=== PATIENT | male | born 1970 | race Caucasian/White ===

== ENCOUNTER → 2020-04-25 15:13 | Outpatient (BNVA) | payer BC, SELFPAY | PROVIDERS: PCP Internal Medicine; Visit Provider Hospitalist ==

== ENCOUNTER 2020-05-17 16:23 | Outpatient (REF) | payer BC, SELFPAY ==
--- NOTE | ~2020-05-17 | CT_ITS ---
EXAMINATION: CT CHEST WITHOUT CONTRAST CLINICAL INFORMATION: Solitary pulmonary nodule. COMPARISON: None. TECHNIQUE: Multidetector volumetric CT imaging of the chest was done. Axial MIP volume rendering provided. Sagittal and coronal reformatted images were obtained. This CT examination was performed using dose optimization techniques as appropriate, variously including the following: *Automated exposure control *Adjustment of mA and/or kV according to patient size (this includes techniques or standardized protocols for targeted exams where dose is matched to indication/reason for exam; i.e. extremities or head) *Use of iterative reconstruction technique DLP: 155 mGy-cm. FINDINGS: [employer] ATTENDANT: Hyperinflated lungs. LUNGS: There is diffuse centrilobular emphysema without acute pneumonic process. There is a 4 mm nodule left upper lobe on axial image 129/9, a 2 mm nodule right lower lobe laterally on axial image 154/9, a 5 mm nodule superior segment right lower lobe on axial image 233/9, a 5 mm nodule subpleural based right upper lobe on image 202/9. No additional nodules visualized. MEDIASTINUM: The thyroid lobes are symmetrical and normal. The central trachea and the bronchi are widely patent. Heart size and the great vessels are normal caliber. No abnormal-sized mediastinal or hilar lymph nodes seen. There is no pericardial effusion. PLEURA: There is no pleural effusion. No pleural mass or thickening. AXILLA: There are small shotty lymph nodes in the axilla. The largest gil-shaped lymph node left axilla measures 1 cm in right axilla measures 1.1 cm. UPPER ABDOMEN: Visualized liver, spleen, pancreas and bilateral adrenal glands are unremarkable. OSSEOUS STRUCTURES: No lytic or sclerotic process seen. CT/CT chest wo con IMPRESSION: Diffuse centrilobular emphysema with no acute pneumonic process seen. There are scattered pulmonary nodules as described above with the largest nodule measuring 5 mm in the superior segment right lower lobe. Based on risk factors, a followup can be performed as per Fleischner guidelines in one year.
== END 2020-05-17 16:24 | disposition home or self-care (01) ==
LOC: HO.CT 16:23
PROVIDERS: PCP Internal Medicine; Visit Provider Hospitalist
DX: R91.1 Solitary pulmonary nodule (principal)
CPT/HCPCS: 71250

== ENCOUNTER 2020-05-19 13:56 | Outpatient (REF) | payer BC, SELFPAY ==
--- NOTE | 2020-05-19 16:34 | PFT_ITS ---
Forced vital capacity is normal. FEV1, IMP69-94, and MVV are all markedly decreased. Post bronchodilator therapy, there is a slight improvement in FEV1 and [id number]. Total lung capacity is moderately increased and residual volume is markedly increased. Diffusion capacity is markedly decreased. CONCLUSION: Severe obstructive airway disorder. Minimal improvement after bronchodilator therapy is noted. There is evidence of hyperinflation and air trapping. MD JANETTE Craig/MODL / [id number]
== END 2020-05-19 13:57 | disposition home or self-care (01) ==
LOC: HO.RESP 13:56
PROVIDERS: Visit Provider Hospitalist
DX: J41.1 Mucopurulent chronic bronchitis (principal)
CPT/HCPCS: 94060; 94727; 94729

== ENCOUNTER → 2020-06-13 14:31 | Outpatient (BNVA) | payer BC, SELFPAY | PROVIDERS: PCP Internal Medicine; Visit Provider Hospitalist ==

== ENCOUNTER → 2020-12-29 14:58 | Outpatient (BNVA) | payer BC, SELFPAY | PROVIDERS: PCP Internal Medicine; Visit Provider Hospitalist | DX: Z23 Encounter for immunization (principal); J44.1 Chronic obstructive pulmonary disease with (acute) exacerbation; R91.1 Solitary pulmonary nodule; F17.200 Nicotine dependence, unspecified, uncomplicated | CPT/HCPCS: 90686 ==

== ENCOUNTER 2021-06-28 06:32 | Inpatient (IN) | payer BC, SELFPAY ==
[2021-06-28] VITALS (12 sets, daily range): BP systolic 95–184; BP diastolic 65–101; PULSE 98–120; RESP 16–27; TEMP 36.7–37.2; O2SAT 80–99; BMI 25.7
--- NOTE | ~2021-06-28 | XR_ITS ---
EXAMINATION: XR CHEST CLINICAL INFORMATION: Shortness of breath COMPARISON: CT chest from 05/17/2020 TECHNIQUE: Frontal view of the chest was obtained. FINDINGS: Hyperinflation the bilateral lung pittman with flattening of the diaphragms corresponding to emphysematous changes. Streaky and patchy opacities involving the bilateral mid to lower lung pittman suggesting an infectious/inflammatory etiology. Correlation with symptomatology. No pneumothorax. Trachea is midline. Cardiomediastinal silhouette is not enlarged. No large pleural effusion. Osseous structures are intact. Soft tissues are unremarkable. XR/XR chest 1V IMPRESSION: 1. Hyperinflation the bilateral lung pittman with flattening of the diaphragms corresponding to emphysematous changes. 2. Streaky and patchy opacities involving the bilateral mid to lower lung pittman suggesting an infectious/inflammatory etiology. Correlation with symptomatology.
--- NOTE | ~2021-06-28 | CT_ITS ---
EXAMINATION: CT HEAD WITHOUT CONTRAST CLINICAL INFORMATION: Headache. Pounding. Hypertension. COMPARISON: None TECHNIQUE: Contiguous axial imaging was performed from the skull base to vertex without intravenous administration of contrast. This CT examination was performed using dose optimization techniques as appropriate, variously including the following: *Automated exposure control *Adjustment of mA and/or kV according to patient size (this includes techniques or standardized protocols for targeted exams where dose is matched to indication/reason for exam; i.e. extremities or head) *Use of iterative reconstruction technique DLP: 697 mGy-cm FINDINGS: The ventricles and sulci are normal in size and configuration. No intrarenal hemorrhage, tumors or acute infarcts are noted. No focal parenchymal lesions of the brain are identified. The orbits and globes are normal in appearance. Moderate opacification of scattered ethmoid air cells is noted. Moderate lobulated mucosal thickening of the maxillary sinuses is noted. Partial visualization is made of a 2.5 cm diameter rounded focus within the right maxillary sinus which may represent a mucosal retention cyst. No mastoid air cell or middle ear cavity fluid collections noted. Mild mucosal thickening is present in the frontal sinuses. The sphenoid sinus demonstrates minimal mucosal thickening. CT/CT head/brain wo con IMPRESSION: *No acute intracranial abnormalities. *Findings suspicious for mild-moderate chronic pansinusitis.
--- NOTE | 2021-06-28 06:36 | ECG_ITS ---
Test Reason : SOB Blood Pressure : / mmHG Vent. Rate : 114 BPM Atrial Rate : 114 BPM P-R Int : 132 ms QRS Dur : 084 ms QT Int : 310 ms P-R-T Axes : 078 089 081 degrees QTc Int : 427 ms Sinus tachycardia cannot exclude old Septal infarct , age undetermined ; could be related to body habitus/lead placement Abnormal ECG No previous ECGs available Referred By: Generic ED Physician Electronically Signed By:JENNIFER FORTE
--- NOTE | 2021-06-28 06:49 | ED_ITS ---
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) Timing: progressively worsening Severity: severe Exacerbating factors: exertion and coughing Relieving factors: oxygen and rest Known history of: COPD Associated symptoms: cough, wheezing and sputum production Treatment prior to arrival: oxygen Related Data Home Medications Medication Instructions Recorded Confirmed albuterol sulfate 90 mcg/actuation 1 - 2 puff INHALATION Q4-6H 04/25/20 04/25/20 aerosol inhaler cholecalciferol (vitamin D3) 25 25 mcg PO DAILY 04/25/20 04/25/20 mcg (1,000 unit) capsule multivitamin 1 tab PO DAILY 04/25/20 04/25/20 ramipril 10 mg capsule 10 mg PO DAILY 04/25/20 04/25/20 Previous Rx's Medication Instructions Recorded azithromycin 250 mg tablet 250 mg PO 3XW 28 Days #12 tab 11/10/20 nicotine 10 mg/mL nasal spray 1 spray INTRANASAL Q15M PRN 30 12/29/20 (Nicotrol NS) Days #40 ml prednisone 20 mg tablet See Rx Instructions PO DAILY 10 12/29/20 Days #15 tab Breztri Aerosphere 160 2 inh PO BID #10.7 g NS 05/14/21 mcg-9mcg-4.8mcg/actuation HFA aerosol inhaler (bwxsmrtwnn-xvnkbarp-tdlunwkvrz) bupropion HCl 75 mg tablet 150 mg PO BID #120 tab 05/14/21 Allergies Allergy/AdvReac Type Severity Reaction Status Date / Time varenicline [From Chantix] AdvReac Mild Nightmare Verified 12/29/20 15:00 Review of Systems Review of Systems: Constitutional : No Fever, No Chills ENT/Mouth : No sore throat, No Rhinorrhea, No Swallowing Difficulty Eyes: No Eye Pain, No Swelling, No Redness Cardiovascular : No Chest Pain, positive SOB, No Orthopnea, no Edema Respiratory : pos Cough, pos Sputum, pos Wheezing, positive dyspnea Gastrointestinal : No Nausea, No Vomiting, No Diarrhea, No abdominal Pain, No Hematochezia, No Melena Genitourinary : No Dysuria, No Urinary Frequency, No Hematuria Musculoskeletal : No joint pain, No Myalgias Skin : No Skin Lesions, No rash Neuro : No Weakness, No Numbness, No Dizziness, No Headache Psych : No Anxiety/Panic, No Depression Heme/Lymph: No Bruising, No Lymphadenopathy Endocrine : No Polyuria, No Polydipsia All other systems reviewed and are negative [facility] Past Medical History Attestation statement: The following information was validated with the patient. Medical History COPD (chronic obstructive pulmonary disease) Pulmonary nodule Tobacco dependence Social History Social History Alcohol intake: current Alcohol intake frequency: 0-2 drinks per day Alcohol type: beer Patient Tobacco Use Status: Current everyday Tobacco user Cigarette Packs Per Day: 1 Cigarettes Per Day: 5 Years Smoked: 30 years Use of substances other than those prescribed or required for medical reasons: Yes Substance Use Type: Marijuana Substance Use Frequency: Weekly Advance Directives: No Advance Directives Information Provided: Yes Physical Exam Vital Signs: Vital Signs: Last Vital Signs Temp 98.1 F 06/28/21 06:46 Pulse 112 H 06/28/21 08:08 Resp 20 06/28/21 08:08 BP 95/65 06/28/21 08:08 Pulse Ox 95 06/28/21 08:08 BMI result Body Mass Index 25.7 Appearance: Alert. Oriented X3. Mild acute distress. RA sat 80% Eyes: Pupils equal, round and reactive to light. ENT: Pharynx normal. Neck: Normal inspection. Neck supple. CVS: tachycardic heart rate and rhythm. Pulses normal. Respiratory: Mild respiratory distress - tachypnea and retractions. Breath sounds diffuse end exp wheezes - very tight Abdomen: Soft and non-tender. Skin: Skin warm and dry. Normal skin color. Normal skin turgor. Extremities: No lower extremity edema. No calf ttp Neuro: Oriented X 3. No motor deficit. No sensory deficit. Course Course Course Narrative: still wheezing - on 3L NC 96%, repeat neb ordered, planned admit MDM - SOB/Dyspnea MDM Narrative Medical decision making narrative: 50 yo male with hx of COPD, HTN here with c/o being exposed working with dust - he is here hypoxic with wheezing and tight lungs. 80% on arrival does not use O2 at home. Will need basic labs, CXR, IV steroids, IV magnesium, 10mg albuterol neb - CXR and COVID swab. Anticipate admission given presentation and hypoxia. Lab Data Result diagrams: 06/28/21 06:52 06/28/21 06:52 Labs: Lab Results 06/28/21 06/28/21 06/28/21 Range/Units 06:52 06:52 06:52 WBC 8.0 (4.8-10.8) X10*3/uL RBC 5.35 (4.60-5.80) X10*6/uL Hgb 17.1 (14.0-18.0) g/dl Hct 51.4 (42.0-52.0) % MCV 96.1 (80.0-98.0) fL MCH 32.0 (27.0-33.0) pg MCHC 33.3 (31.0-36.0) g/dl RDW 12.3 (11.0-16.0) % Plt Count 194 (160-400) X10*3/uL MPV 10.0 (9.4-12.4) fL Immature Gran % (Auto) 0.4 (0.0-0.4) % Neut % (Auto) 65.6 (45-73) % Lymph % (Auto) 13.6 L (20-40) % Hernando % (Auto) 18.0 H (2-11) % Eos % (Auto) 1.6 (0-4) % Baso % (Auto) 0.8 (0-2) % Lymph # (Auto) 1.1 L (1.2-4.9) X10*3/uL Hernando # (Auto) 1.4 H (0.1-1.2) X10*3/uL Eos # (Auto) 0.1 (0.0-0.4) X10*3/uL Baso # (Auto) 0.1 (0.0-0.2) X10*3/uL Abs Immat Gran (auto) 0.03 (0.00-0.03) X10*3/uL Absolute Neuts (auto) 5.2 (2.0-8.3) x10*3/uL Absolute Nucleated RBC 0.000 (0.0-0.012) X10*3/uL Nucleated RBC % (auto) 0.0 (0.0-0.2) /100WBC Sodium 135 (135-145) mmol/L Potassium 4.5 (3.3-5.1) mmol/L Chloride 96 (96-108) mmol/L Carbon Dioxide 31 H (22-29) mmol/L Anion Gap 13 (12-20) BUN 12 (9-16) mg/dL Creatinine 0.85 (0.5-1.4) mg/dL Estim Creat Clear Calc 109.5 Estimated GFR > 60 Random Glucose 145 H (60-115) mg/dL Lactic Acid 1.1 (0.5-2.0) mmol/L Calcium 9.6 (8.4-10.2) mg/dL Total Bilirubin 0.5 (0.0-1.0) mg/dL Direct Bilirubin 0.2 (0.0-0.5) mg/dL AST 24 (5-37) U/L ALT 20 (0-40) U/L Alkaline Phosphatase 75 (39-117) U/L Troponin I High Sens (<3.5-35.0) ng/L Total Protein 7.3 (6.5-8.0) g/dL Albumin 4.2 (3.5-5.0) g/dL COVID-19 (LOUIE) (Negative) COVID-19 Clin Com 06/28/21 06/28/21 Range/Units 06:54 07:22 WBC (4.8-10.8) X10*3/uL RBC (4.60-5.80) X10*6/uL Hgb (14.0-18.0) g/dl Hct (42.0-52.0) % MCV (80.0-98.0) fL MCH (27.0-33.0) pg MCHC (31.0-36.0) g/dl RDW (11.0-16.0) % Plt Count (160-400) X10*3/uL MPV (9.4-12.4) fL Immature Gran % (Auto) (0.0-0.4) % Neut % (Auto) (45-73) % Lymph % (Auto) (20-40) % Hernando % (Auto) (2-11) % Eos % (Auto) (0-4) % Baso % (Auto) (0-2) % Lymph # (Auto) (1.2-4.9) X10*3/uL Hernando # (Auto) (0.1-1.2) X10*3/uL Eos # (Auto) (0.0-0.4) X10*3/uL Baso # (Auto) (0.0-0.2) X10*3/uL Abs Immat Gran (auto) (0.00-0.03) X10*3/uL Absolute Neuts (auto) (2.0-8.3) x10*3/uL Absolute Nucleated RBC (0.0-0.012) X10*3/uL Nucleated RBC % (auto) (0.0-0.2) /100WBC Sodium (135-145) mmol/L Potassium (3.3-5.1) mmol/L Chloride (96-108) mmol/L Carbon Dioxide (22-29) mmol/L Anion Gap (12-20) BUN (9-16) mg/dL Creatinine (0.5-1.4) mg/dL Estim Creat Clear Calc Estimated GFR Random Glucose (60-115) mg/dL Lactic Acid (0.5-2.0) mmol/L Calcium (8.4-10.2) mg/dL Total Bilirubin (0.0-1.0) mg/dL Direct Bilirubin (0.0-0.5) mg/dL AST (5-37) U/L ALT (0-40) U/L Alkaline Phosphatase (39-117) U/L Troponin I High Sens 7.5 (<3.5-35.0) ng/L Total Protein (6.5-8.0) g/dL Albumin (3.5-5.0) g/dL COVID-19 (LOUIE) Negative (Negative) COVID-19 Clin Com See Note ECG Data Attestation: I personally reviewed and interpreted this ECG as follows: ECG interpretation date: 06/28/21 ECG interpretation time: 07:02 Interpretation: Rate: 114 Rhythm: sinus tachycardia Canon: normal Normal P waves. Normal JOSH. Normal QRS complex. Poor R wave progression ST T wave : normal no SAMARA qTC: normal prior studies: no acute ischemia The study has been interpreted contemporaneously by me. Critical Care Time Critical Care Time Critical Care Time: Yes Total Critical Care Time: 60 Attestation: repeat assessments, repeat hour long nebs, review of records, admssion I attest to this time spent taking care of the patient Discharge Plan Discharge Clinical Impression: COPD (chronic obstructive pulmonary disease) Qualifiers: COPD type: COPD with acute exacerbation Qualified Code(s): J44.1 - Chronic obstructive pulmonary disease with (acute) exacerbation Patient Disposition: Admitted As Inpatient
[2021-06-28] MEDS: Albuterol Sulfate (0.083%) 2.5 MG/3 ML VIAL.NEB 10 MG INHALE (06:57)
--- NOTE | 2021-06-28 06:57 | PC.NURSE ---
Addendum entered by Kacy Guerra 06/28/21 07:16: Report given to MONTY Tse Original Note: pt arrived alert and oriented from home, with sob, audible wheezes. pt notice to be 80's RA. started on NC 6L increase to 96. pt started on continuos cardiac monitoring. ekg completed. IV inserted. respiratory arrived to bedside, pt tolerating treatment
[2021-06-28 07:02] LABS: MANUAL DIFF FLAG NO
[2021-06-28] MEDS: Magnesium Sulfate/H2O 2 GM/50 ML PIGGYBACK IV (07:05)
[2021-06-28] MEDS: methylPREDNISolone Sod Succ 125 MG/2 ML VIAL IVPUSH (07:05)
[2021-06-28 07:13] LABS: Lactic Acid 1.1 mmol/L (0.5-2.0)
[2021-06-28 07:18] LABS: Alanine Aminotransferase 20 U/L (0-40); Albumin Level 4.2 g/dL (3.5-5.0); Alkaline Phosphatase 75 U/L (39-117); Anion Gap 13 (12-20); Aspartate Amino Transferase 24 U/L (5-37); Bilirubin Direct 0.2 mg/dL (0.0-0.5); Bilirubin Total 0.5 mg/dL (0.0-1.0); Blood Urea Nitrogen 12 mg/dL (9-16); Calcium 9.6 mg/dL (8.4-10.2); Carbon Dioxide 31 mmol/L (22-29); Chloride 96 mmol/L (96-108); Creatinine Clr Calc Pharmacy 109.5; Estimated Glomerular Filt Rate > 60; Glucose Random 145 mg/dL (60-115); Potassium 4.5 mmol/L (3.3-5.1); Sodium 135 mmol/L (135-145); Total Protein 7.3 g/dL (6.5-8.0)
[2021-06-28 07:21] LABS: Basophils Absolute Auto 0.1 X10*3/uL (0.0-0.2); Basophils Percent Auto 0.8 % (0-2); Eosinophils Absolute Auto 0.1 X10*3/uL (0.0-0.4); Eosinophils Percent Auto 1.6 % (0-4); Hematocrit 51.4 % (42.0-52.0); Hemoglobin 17.1 g/dl (14.0-18.0); Imm Gran Abs Auto 0.03 X10*3/uL (0.00-0.03); Imm Gran Pct Auto 0.4 % (0.0-0.4); Lymphocytes Absolute Auto 1.1 X10*3/uL (1.2-4.9); Lymphocytes Percent Auto 13.6 % (20-40); Mean Corpuscular HGB Conc 33.3 g/dl (31.0-36.0); Mean Corpuscular Volume 96.1 fL (80.0-98.0); Monocytes Absolute Auto 1.4 X10*3/uL (0.1-1.2); Neutrophils Absolute Auto 5.2 x10*3/uL (2.0-8.3); Neutrophils Percent Auto 65.6 % (45-73); Platelet Count 194 X10*3/uL (160-400); Red Blood Count 5.35 X10*6/uL (4.60-5.80); Red Cell Distribution Width 12.3 % (11.0-16.0)
[2021-06-28 07:24] LABS: Troponin-I High Sensitivity 7.5 ng/L (<3.5-35.0)
[2021-06-28 07:50] LABS: COVID-19 Test Negative (Negative); IDNOW Serial# 16C4AD1C
[2021-06-28] MEDS: Albuterol/Iprat 2.5/0.5MG 3 ML AMPUL.NEB INHALE ×3 (08:01→19:57)
[2021-06-28] MEDS: Albuterol Sulfate (0.083%) 2.5 MG/3 ML VIAL.NEB 5 MG INHALE (08:01)
--- NOTE | 2021-06-28 08:15 | PC.NURSE ---
pt alert and oriented, skin slightly red in the face, respirations even and unlabored, ls still very tight and wheezing through out, pt denies pain, sinus tach on the monitor, bp slightly low 95/65
[2021-06-28] MEDS: cefTRIAXone sodium 1 GM in 0.9 % Sodium Chloride 50 ML IV (08:23)
[2021-06-28] MEDS: 0.9 % Sodium Chloride 1,000 ML 999 ML IV (08:23)
[2021-06-28] MEDS: Doxycycline Hyclate 100 MG in 0.9 % Sodium Chloride 250 ML 166.67 MG IV (09:27)
--- NOTE | 2021-06-28 09:31 | PC.NURSE ---
Sats low 90s on 3.5 liters with good pt effort wiht coughing. Pt appears comfortable in NAD at this time.
--- NOTE | 2021-06-28 10:24 | P.HPHOSP_ITS ---
History of Present Illness Date of Service: 06/28/21 Chief Complaint: dyspnea, cough 50yo M with COPD + HTN presenting with 1 week of worsening dyspnea, wheezing, and cough productive of yellow sputum. 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 Endorses nasal congestion. No fever or sore throat. No sick contacts. Last course of prednisone 6 yr ago. He sees Dr Pablo at [facility] and is on triple controller inhaler therapy. In the ED, he presented with hypoxia, with SaO2 80% on room air at arrival. Not on home oxygen. Given IV glucocorticoid, IV magnesium, ceftriaxone, doxycycline, and 10 mg of nebulized albuterol. Covid-19 LOUIE negative. CXR showed hyperinflated luntgs with bilateral streaky mid and lower lung opacities. Review of Systems Review of Systems: Yes all other systems are reviewed and are negative [facility] Medical History COPD (chronic obstructive pulmonary disease) History of diverticulitis Hypertension Pulmonary nodule Tobacco abuse Tobacco dependence Surgical History History of hernia repair History of partial colectomy Social History Alcohol intake: current Alcohol intake frequency: 0-2 drinks per day Alcohol type: beer Patient Tobacco Use Status: Current everyday Tobacco user Cigarette Packs Per Day: 1 Cigarettes Per Day: 5 Years Smoked: 30 years Use of substances other than those prescribed or required for medical reasons: Yes Substance Use Type: Marijuana Substance Use Frequency: Weekly Advance Directives: No Advance Directives Information Provided: Yes Meds Allergies Allergy/AdvReac Type Severity Reaction Status Date / Time varenicline [From Chantix] AdvReac Mild Nightmare Verified 12/29/20 15:00 Active Medications: Current Medications Acetaminophen (Acetaminophen 325 Mg Tablet) 650 mg PO Q6H PRN PRN Reason: Pain, Mild (Pain Scale 1-3) Albuterol Sulfate (Albuterol Sulfate (0.083%) 2.5 Mg/3 Ml Vial.Neb) 2.5 mg INHALE Q2H PRN PRN Reason: Shortness of Breath/Wheezing Albuterol/Ipratropium (Albuterol/Iprat 2.5/0.5mg 3 Ml Ampul.Neb) 3 ml INHALE RQ4H WHILE AWAKE [facility] Doxycycline Hyclate (Doxycycline Hyclate 100 Mg Tablet) 100 mg PO Q12H [facility] Enoxaparin Sodium (Enoxaparin Sodium 40 Mg/0.4 Ml Syringe) 40 mg SUBCUT Q24H [facility] Ceftriaxone Sodium 1 gm/ (Sodium Chloride) 50 mls @ 100 mls/hr IV Q24H [facility] Methylprednisolone Sodium Succinate (Methylprednisolone Sod Succ 40 Mg/Ml Vial) 40 mg IVPUSH Q12H [facility] Nicotine (Nicotine 21 Mg Patch.Td24) 21 mg TRANSDERMA DAILY [facility] Ondansetron HCl (Ondansetron Hcl 4 Mg/2 Ml Vial) 4 mg IVPUSH Q8H PRN PRN Reason: Nausea and Vomiting Pharmacy Consult (Consult Rx Perform Med Rec) 1 each MISCELLANE STAT STA Stop: 06/28/21 09:34 Sodium Chloride (0.9 % Sodium Chloride Flush 3 Ml Syringe) 3 ml IVFLUSH QSHIFT [facility] Home Medications Medication Instructions Recorded Confirmed Last Taken Type albuterol sulfate 90 mcg/actuation 1 - 2 puff INHALATION Q4-6H 04/25/20 04/25/20 Unknown History aerosol inhaler cholecalciferol (vitamin D3) 25 25 mcg PO DAILY 04/25/20 04/25/20 Unknown History mcg (1,000 unit) capsule multivitamin 1 tab PO DAILY 04/25/20 04/25/20 Unknown History ramipril 10 mg capsule 10 mg PO DAILY 04/25/20 04/25/20 Unknown History Physical Exam Vital Signs and Narrative: Vital Signs: Last Vital Signs Temp 98.0 F 06/28/21 09:29 Pulse 109 H 06/28/21 09:29 Resp 17 06/28/21 09:29 BP 111/72 06/28/21 09:29 Pulse Ox 90 L 06/28/21 09:29 BMI result Body Mass Index 25.7 Gen: moderate respiratory distress, breathing 28/min HEENT: sclera anicteric, moist mucus membranes Neck: supple Lungs: poor air entry, faint expiratory wheezing, prolonged expiratory phase Heart: tachycardic, no murmurs Abd: soft, non-tender, non-distended Ext: no edema Skin: warm/well-perfused Neuro: alert and oriented x3, no focal findings Psych: appropriate affect Results Labs CBC and Chem 7: 06/28/21 06:52 06/28/21 06:52 Labs: Laboratory Results - last 24 hr 06/28/21 06/28/21 06/28/21 06:52 06:52 06:52 MCV 96.1 MCH 32.0 MCHC 33.3 RDW 12.3 Plt Count 194 MPV 10.0 Immature Gran % (Auto) 0.4 Neut % (Auto) 65.6 Lymph % (Auto) 13.6 L Morton % (Auto) 18.0 H Eos % (Auto) 1.6 Baso % (Auto) 0.8 Lymph # (Auto) 1.1 L Morton # (Auto) 1.4 H Eos # (Auto) 0.1 Baso # (Auto) 0.1 Abs Immat Gran (auto) 0.03 Absolute Neuts (auto) 5.2 Absolute Nucleated RBC 0.000 Nucleated RBC % (auto) 0.0 Anion Gap 13 Estim Creat Clear Calc 109.5 Estimated GFR > 60 Random Glucose 145 H Lactic Acid 1.1 Calcium 9.6 Total Bilirubin 0.5 Direct Bilirubin 0.2 AST 24 ALT 20 Alkaline Phosphatase 75 Troponin I High Sens Total Protein 7.3 Albumin 4.2 COVID-19 (LOUIE) COVID-19 Clin Com 06/28/21 06/28/21 06:54 07:22 MCV MCH MCHC RDW Plt Count MPV Immature Gran % (Auto) Neut % (Auto) Lymph % (Auto) Morton % (Auto) Eos % (Auto) Baso % (Auto) Lymph # (Auto) Morton # (Auto) Eos # (Auto) Baso # (Auto) Abs Immat Gran (auto) Absolute Neuts (auto) Absolute Nucleated RBC Nucleated RBC % (auto) Anion Gap Estim Creat Clear Calc Estimated GFR Random Glucose Lactic Acid Calcium Total Bilirubin Direct Bilirubin AST ALT Alkaline Phosphatase Troponin I High Sens 7.5 Total Protein Albumin COVID-19 (LOUIE) Negative COVID-19 Clin Com See Note Impressions Chest X-Ray 06/28/21 08:51 IMPRESSION: 1. Hyperinflation the bilateral lung pittman with flattening of the diaphragms corresponding to emphysematous changes. 2. Streaky and patchy opacities involving the bilateral mid to lower lung pittman suggesting an infectious/inflammatory etiology. Correlation with symptomatology. Imaging Radiologist's Impressions: Impressions Chest X-Ray 06/28/21 08:51 IMPRESSION: 1. Hyperinflation the bilateral lung pittman with flattening of the diaphragms corresponding to emphysematous changes. 2. Streaky and patchy opacities involving the bilateral mid to lower lung pittman suggesting an infectious/inflammatory etiology. Correlation with symptomatology. Assessment and Plan (1) COPD exacerbation: Status: Acute (2) Acute respiratory failure with hypoxia: Status: Acute Plan 50yo M with COPD + HTN presenting with 1 week of worsening dyspnea, wheezing, and cough productive of yellow sputum. He is found to be hypoxic with bilateral streaky opacities concerning for pneumonia. # COPD exacerbation - admit to M/S, give IV methylprednisolone, standing/prn bronchodilators, Pulm consult # acute hypoxic respiratory failure - supplemental O2 via NC, wean as tolerated # CAP - ceftriaxone + doxycycline, follow BCx, trend PCT, check respiratory virus panel # HTN - continue CIRILO-I # tobacco abuse - NRT # VTE ppx - LMWH # code - full Quality Stroke Does the patient have a stroke diagnosis?: No VTE Prior VTE?: No VTE Risk Level:: Medical - moderate - high VTE Device Contraindication: N/A - Device Ordered VTE Drug Contraindication: N/A - Med Ordered
[2021-06-28 10:25] LABS: Procalcitonin 0.04 ng/mL
[2021-06-28 11:10] LABS: Troponin-I High Sensitivity 5.8 ng/L (<3.5-35.0)
--- NOTE | 2021-06-28 11:51 | PHA.MEDREC ---
Pharmacy Consult ? Medication Reconciliation Pharmacy has completed the medication reconciliation. No remarkable issues. Jimena Saunders, SonamD
[2021-06-28] MEDS: Enoxaparin Sodium 40 MG/0.4 ML SYRINGE SUBCUT (11:54)
--- NOTE | 2021-06-28 14:17 | MHC.CM.PN ---
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
--- NOTE | 2021-06-28 14:18 | PC.NURSE ---
Report called to justice in overflow unit. Pt reports being comfortable at this time. Awaiting transport to unit.
[2021-06-28] MEDS: 0.9 % Sodium Chloride Flush 3 ML SYRINGE IVFLUSH (15:49)
[2021-06-29] VITALS (8 sets, daily range): BP systolic 126–146; BP diastolic 79–92; PULSE 100–121; RESP 16–28; TEMP 36.9–37.3; O2SAT 90–96
--- NOTE | 2021-06-29 | ECG_ITS ---
Test Reason : HYPERK Blood Pressure : / mmHG Vent. Rate : 106 BPM Atrial Rate : 106 BPM P-R Int : 128 ms QRS Dur : 084 ms QT Int : 310 ms P-R-T Axes : 074 087 073 degrees QTc Int : 411 ms Sinus tachycardia cannot exclude old Septal infarct (cited on or before 28-JUN-2021) ; could be related to body habitus/lead placement Borderline ECG When compared with ECG of 28-JUN-2021 06:37, No significant change was found Referred By: Raul Mora Electronically Signed By:JENNIFER FORTE
[2021-06-29] MEDS: 0.9 % Sodium Chloride Flush 3 ML SYRINGE IVFLUSH ×4 (01:02→20:53)
[2021-06-29] MEDS: Acetaminophen 325 MG TABLET 650 MG PO ×2 (01:06→07:56)
[2021-06-29 06:11] LABS: VBG Base Excess 11.3 mmol/L; VBG HCO3 43 mmol/L (22-26); VBG pCO2 87 mmHg; VBG pH 7.29 (7.32-7.43); VBG pO2 29 mmHg
[2021-06-29 06:11] LABS: Hematocrit 51.8 % (42.0-52.0); Hemoglobin 16.6 g/dl (14.0-18.0); Mean Corpuscular Hemoglobin 31.7 pg (27.0-33.0); Mean Platelet Volume 9.6 fL (9.4-12.4); Platelet Count 179 X10*3/uL (160-400); Red Blood Count 5.23 X10*6/uL (4.60-5.80); Red Cell Distribution Width 12.3 % (11.0-16.0); Venous Blood Gas Refer to POC result; White Blood Count 10.4 X10*3/uL (4.8-10.8)
[2021-06-29 07:10] LABS: Anion Gap 8 (12-20); Blood Urea Nitrogen 14 mg/dL (9-16); Calcium 9.6 mg/dL (8.4-10.2); Carbon Dioxide 37 mmol/L (22-29); Chloride 99 mmol/L (96-108); Creatinine Clr Calc Pharmacy 116.3; Estimated Glomerular Filt Rate > 60; Glucose Random 128 mg/dL (60-115); Potassium 6.2 mmol/L (3.3-5.1); Sodium 138 mmol/L (135-145)
[2021-06-29] MEDS: cefTRIAXone sodium 1 GM in 0.9 % Sodium Chloride 50 ML IV (07:50)
[2021-06-29] MEDS: methylPREDNISolone Sod Succ 40 MG/ML VIAL IVPUSH (07:55)
[2021-06-29] MEDS: buPROPion HCL 75 MG TABLET 150 MG PO (07:55)
[2021-06-29] MEDS: Cholecalciferol (Vitamin D3) 25 MCG TABLET PO (07:55)
[2021-06-29] MEDS: Multivitamin TABLET 1 TAB PO (07:56)
[2021-06-29] MEDS: Nicotine 21 MG PATCH.TD24 TRANSDERMA (07:57)
[2021-06-29] MEDS: Sodium Zirconium Cyclosilicate 10 GM POWD.PACK PO (07:58)
[2021-06-29 07:59] LABS: Glucose, Whole Blood 131 mg/dL (60-115)
[2021-06-29 08:12] LABS: Anion Gap 9 (12-20); Blood Urea Nitrogen 13 mg/dL (9-16); Calcium 9.5 mg/dL (8.4-10.2); Carbon Dioxide 36 mmol/L (22-29); Chloride 98 mmol/L (96-108); Creatinine Clr Calc Pharmacy 108.2; Estimated Glomerular Filt Rate > 60; Glucose Random 126 mg/dL (60-115); Potassium 5.2 mmol/L (3.3-5.1); Sodium 138 mmol/L (135-145)
[2021-06-29] MEDS: Calcium Gluconate/NaCl,Iso-Osm 1 GM/50 ML PLAST..BAG IV (08:16)
[2021-06-29] MEDS: Albuterol/Iprat 2.5/0.5MG 3 ML AMPUL.NEB INHALE ×3 (08:19→20:09)
--- NOTE | 2021-06-29 09:29 | PM.CNPUL ---
History of Present Illness History of Present Illness Consult date: 06/29/21 Chief complaint: COPD, PNA,hypoxia Narrative: The patient is here for an inpatient pulmonary consultation. The patient is a 50yo M with COPD + HTN presenting with 1 week of worsening dyspnea, wheezing, and cough productive of yellow sputum.? 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 Endorses nasal congestion.? No fever or sore throat.? No sick contacts.? Last course of prednisone 6 yr ago.?In the ED, he presented with hypoxia, with SaO2 80% on room air at arrival.? Not on home oxygen.? Given IV glucocorticoid, IV magnesium, ceftriaxone, doxycycline, and 10 mg of nebulized albuterol.? Covid-19 LOUIE negative.? CXR showed hyperinflated luntgs with bilateral streaky mid and lower lung opacities. The patient is still having hard time. I did review his chest x-ray demonstrating hyperinflation. He is having hard time coughing. He had been exposed to significant in organic dust at work. I am concerned that he has reactive airway dysfunction syndrome. He does have increased work of breathing. I will request an ABG to make sure he is adequately compensating. In meantime also will provide him with additional steroids and nebulized therapy. Review of Systems Review of Systems: Constitutional : No Fever, No Chills ENT/Mouth : No sore throat, No Rhinorrhea, No Swallowing Difficulty Eyes: No Eye Pain, No Swelling, No Redness Cardiovascular : No Chest Pain, positive SOB, No Orthopnea, no Edema Respiratory : pos Cough, pos Sputum, pos Wheezing, positive dyspnea Gastrointestinal : No Nausea, No Vomiting, No Diarrhea, No abdominal Pain, No Hematochezia, No Melena Genitourinary : No Dysuria, No Urinary Frequency, No Hematuria Musculoskeletal : No joint pain, No Myalgias Skin : No Skin Lesions, No rash Neuro : No Weakness, No Numbness, No Dizziness, No Headache Psych : No Anxiety/Panic, No Depression Heme/Lymph: No Bruising, No Lymphadenopathy Endocrine : No Polyuria, No Polydipsia All other systems reviewed and are negative PMFSH Past Medical History Medical History COPD (chronic obstructive pulmonary disease) History of diverticulitis Hypertension Pulmonary nodule Tobacco abuse Tobacco dependence Surgical History Surgical History History of hernia repair History of partial colectomy Social History Social History Household Members: Spouse Housing: House Alcohol intake: current Alcohol intake frequency: 0-2 drinks per day Alcohol type: beer Patient Tobacco Use Status: Current everyday Tobacco user Tobacco use type: Cigarette Cigarette Packs Per Day: 1 Cigarettes Per Day: 5 Years Smoked: 30 years Second Hand Smoke Exposure: No Substance Use Type: Marijuana service: No Current occupational status: employed Meds Allergies Allergy/AdvReac Type Severity Reaction Status Date / Time varenicline [From Chantix] AdvReac Mild Nightmare Verified 12/29/20 15:00 Active Medications: Current Medications Acetaminophen (Acetaminophen 325 Mg Tablet) 650 mg PO Q6H PRN PRN Reason: Pain, Mild (Pain Scale 1-3) Last Admin: 06/29/21 07:56 Dose: 650 mg Documented by: Albuterol Sulfate (Albuterol Sulfate (0.083%) 2.5 Mg/3 Ml Vial.Neb) 2.5 mg INHALE Q2H PRN PRN Reason: Shortness of Breath/Wheezing Albuterol Sulfate (Albuterol Sulfate (0.083%) 2.5 Mg/3 Ml Vial.Neb) 10 mg INHALE ONCE ONE Stop: 06/29/21 09:26 Albuterol/Ipratropium (Albuterol/Iprat 2.5/0.5mg 3 Ml Ampul.Neb) 3 ml INHALE RQ4H WHILE AWAKE [facility] Last Admin: 06/29/21 08:19 Dose: 3 ml Documented by: Bupropion HCl (Bupropion Hcl 75 Mg Tablet) 150 mg PO DAILY [facility] Last Admin: 06/29/21 07:55 Dose: 150 mg Documented by: Doxycycline Hyclate (Doxycycline Hyclate 100 Mg Tablet) 100 mg PO Q12H [facility] Last Admin: 06/29/21 07:56 Dose: 100 mg Documented by: Enoxaparin Sodium (Enoxaparin Sodium 40 Mg/0.4 Ml Syringe) 40 mg SUBCUT Q24H [facility] Last Admin: 06/28/21 11:54 Dose: 40 mg Documented by: Ceftriaxone Sodium 1 gm/ (Sodium Chloride) 50 mls @ 100 mls/hr IV Q24H [facility] Last Infusion: 06/29/21 08:22 Dose: Infused Documented by: Magnesium Sulfate (Magnesium Sulfate/H2o) 2 gm in 50 mls @ 25 mls/hr IV ONCE ONE Stop: 06/29/21 11:24 Melatonin (Melatonin 3 Mg Tablet) 3 mg PO BEDTIME PRN PRN Reason: Sleep Methylprednisolone Sodium Succinate (Methylprednisolone Sod Succ 40 Mg/Ml Vial) 80 mg IVPUSH Q8H [facility] Multivitamins/Vitamin C (Multivitamin Tablet) 1 tab PO DAILY [facility] Last Admin: 06/29/21 07:56 Dose: 1 tab Documented by: Nicotine (Nicotine 21 Mg Patch.Td24) 21 mg TRANSDERMA DAILY [facility] Last Admin: 06/29/21 07:57 Dose: 21 mg Documented by: Non-Formulary Medication (Leehewwjyg-Egamheeo-Bxqujoafnp [Breztri Aerosphere]) 2 inhalation PO BID [facility] Ondansetron HCl (Ondansetron Hcl 4 Mg/2 Ml Vial) 4 mg IVPUSH Q8H PRN PRN Reason: Nausea and Vomiting Sodium Chloride (0.9 % Sodium Chloride Flush 3 Ml Syringe) 3 ml IVFLUSH QSHIFT [facility] Last Admin: 06/29/21 07:57 Dose: 3 ml Documented by: Vitamin D (Cholecalciferol (Vitamin D3) 25 Mcg Tablet) 25 mcg PO DAILY [facility] Last Admin: 06/29/21 07:55 Dose: 25 mcg Documented by: Home Medications Medication Instructions Recorded Confirmed Last Taken Type albuterol sulfate 90 mcg/actuation 1 - 2 puff INHALATION Q4H 04/25/20 06/28/21 Unknown History aerosol inhaler cholecalciferol (vitamin D3) 25 25 mcg PO DAILY 04/25/20 06/28/21 06/28/21 History mcg (1,000 unit) capsule multivitamin 1 tab PO DAILY 04/25/20 06/28/21 06/28/21 History ramipril 10 mg capsule 10 mg PO DAILY 04/25/20 06/28/21 06/28/21 History bupropion HCl 75 mg tablet 150 mg PO DAILY 06/28/21 06/28/21 06/28/21 History melatonin 3 mg tablet 3 mg PO BEDTIME PRN 06/28/21 06/28/21 Unknown History Physical Exam Vital Signs: Vital Signs: Last Vital Signs Temp 98.9 F 06/29/21 08:00 Pulse 100 06/29/21 08:20 Resp 20 06/29/21 08:20 BP 146/92 H 06/29/21 08:00 Pulse Ox 93 06/29/21 08:00 BMI result Body Mass Index 25.7 Const: General: alert and in distress mild Neck: Neck: Yes normal visual inspection, Yes full ROM and Yes no lymphadenopathy Chest: Chest palpation & inspection: normal inspection of the chest Resp: Effort & Inspection: labored and paradoxical thoraco-abdominal movements Auscultation: wheezes and diminished lung sounds Cardio: Rate: regular rate Rhythm: regular rhythm Heart sounds: S1 normal heart sound present and S2 normal heart sound present GI: Palpation (GI): Soft to palpation and nontender Auscultation: normal bowel sounds Skin: General skin exam: rashes and/or lesions noted Extrem: General: Yes clubbing, Yes cyanosis and No edema Results Laboratory Findings CBC and BMP: 06/29/21 05:58 06/29/21 07:42 Abnormal lab findings: Abnormal Labs 06/28/21 06/28/21 06/29/21 06:52 06:52 05:58 MCV 99.0 H Lymph % (Auto) 13.6 L [place] % (Auto) 18.0 H Lymph # (Auto) 1.1 L [place] # (Auto) 1.4 H VBG pH VBG HCO3 Potassium Carbon Dioxide 31 H Anion Gap POC Glucose Random Glucose 145 H 06/29/21 06/29/21 06/29/21 05:58 06:04 07:39 MCV Lymph % (Auto) [place] % (Auto) Lymph # (Auto) [place] # (Auto) VBG pH 7.29 L VBG HCO3 43 H Potassium 6.2 H* D Carbon Dioxide 37 H Anion Gap 8 L POC Glucose 131 H Random Glucose 128 H 06/29/21 07:42 MCV Lymph % (Auto) [place] % (Auto) Lymph # (Auto) [place] # (Auto) VBG pH VBG HCO3 Potassium 5.2 H Carbon Dioxide 36 H Anion Gap 9 L POC Glucose Random Glucose 126 H Microbiology: Microbiology 06/28/21 07:22 Blood - Venous Blood Culture - Preliminary No growth after 24 hours. 06/28/21 06:54 Blood - Venous Blood Culture - Preliminary No growth after 24 hours. Assessment and Plan (1) Acute respiratory failure with hypoxia: Status: Acute (2) COPD exacerbation: Status: Acute The patient is presenting with a COPD exacerbation. But, likely has a component of RADS from his work and therefore having worsening work of breathing. Plan ABG Albuterol 10mg tx Increase Solumedrol Continue antibiotics Addendum: ABG very abnormal with pCO2 elevated consistent with acute on chronic hypercarbic respiratory failure patient needs to be on BiPAP or noninvasive ventilation at this time. Procedures Date of Service Date of Service: 06/29/21
[2021-06-29] MEDS: Albuterol Sulfate (0.083%) 2.5 MG/3 ML VIAL.NEB 10 MG INHALE (09:43)
[2021-06-29 09:46] LABS: Adenovirus PCR Not Detected (Not Detect.); Bordetella parapertussis PCR Not Detected (Not Detect.); Bordetella pertussis PCR Not Detected (Not Detect.); Chlamydia pneumoniae PCR Not Detected (Not Detect.); Coronavirus 229E PCR Not Detected (Not Detect.); Coronavirus HKU1 PCR Not Detected (Not Detect.); Coronavirus NL63 PCR Not Detected (Not Detect.); Coronavirus OC43 PCR Detected (Not Detect.); Human metapneumovirus PCR Not Detected (Not Detect.); Influenza A PCR Not Detected (Not Detect.); Influenza B PCR Not Detected (Not Detect.); Mycoplasma pneumoniae PCR Not Detected (Not Detect.); Parainfluenza 1 PCR Not Detected (Not Detect.); Parainfluenza 2 PCR Not Detected (Not Detect.); Parainfluenza 3 PCR Not Detected (Not Detect.); Parainfluenza 4 PCR Not Detected (Not Detect.); RSV PCR Not Detected (Not Detect.); Rhino/Enterovirus PCR Not Detected (Not Detect.); SARS-CoV-2 PCR Not Detected (Not Detect.)
[2021-06-29] MEDS: Magnesium Sulfate/H2O 2 GM/50 ML PIGGYBACK IV (10:40)
[2021-06-29] MEDS: Enoxaparin Sodium 40 MG/0.4 ML SYRINGE SUBCUT (10:41)
[2021-06-29 11:04] LABS: ABG Refer to POC result
[2021-06-29 11:04] LABS: ABG Base Excess 5.6 mmol/L; ABG HCO3 34 mmol/L (22-26); ABG pCO2 63 mmHg (32-45); ABG pH 7.33 (7.35-7.45); ABG pO2 48 mmHg (83-108)
--- NOTE | 2021-06-29 11:38 | HO.PM.IMPN ---
Subjective Subjective Date of Service: 06/29/21 Interval History: C/o cough, dyspnea + wheeze; no fever Worsening dyspnea + hypoxia this AM with cyanosis, SaO2 75% on 4L; placed on 8L O2 and given 10mg continuous albuterol neb and SaO2 now 93% on 2L Review of Systems Review of Systems: Yes all other systems are reviewed and are negative Physical Exam Vital Signs: Vital Signs: Last Vital Signs Temp 98.9 F 06/29/21 08:00 Pulse 109 H 06/29/21 09:44 Resp 28 H 06/29/21 09:44 BP 146/92 H 06/29/21 08:00 Pulse Ox 93 06/29/21 08:00 BMI result Body Mass Index 25.7 Gen: moderate resp distress HEENT: sclera anicteric, moist mucus membranes Neck: supple Lungs: poor air entry, scattered high-pitched exp wheezes Heart: regular rate, tachycardic no murmurs Abd: soft, non-tender, non-distended Ext: no edema Skin: warm/well-perfused Neuro: alert and oriented x3, no focal findings Psych: appropriate affect Objective Data Active Medications Acetaminophen (Acetaminophen 325 Mg Tablet) 650 mg PO Q6H PRN PRN Reason: Pain, Mild (Pain Scale 1-3) Last Admin: 06/29/21 07:56 Dose: 650 mg Documented by: KALYANI Acetazolamide (Acetazolamide Sodium 500 Mg Vial) 250 mg IVPUSH BID@1000,2200 [facility] Albuterol Sulfate (Albuterol Sulfate (0.083%) 2.5 Mg/3 Ml Vial.Neb) 2.5 mg INHALE Q2H PRN PRN Reason: Shortness of Breath/Wheezing Albuterol/Ipratropium (Albuterol/Iprat 2.5/0.5mg 3 Ml Ampul.Neb) 3 ml INHALE RQ4H WHILE AWAKE [facility] Last Admin: 06/29/21 08:19 Dose: 3 ml Documented by: JORDAN Bupropion HCl (Bupropion Hcl 75 Mg Tablet) 150 mg PO DAILY [facility] Last Admin: 06/29/21 07:55 Dose: 150 mg Documented by: KALYANI Doxycycline Hyclate (Doxycycline Hyclate 100 Mg Tablet) 100 mg PO Q12H [facility] Last Admin: 06/29/21 07:56 Dose: 100 mg Documented by: KALYANI Enoxaparin Sodium (Enoxaparin Sodium 40 Mg/0.4 Ml Syringe) 40 mg SUBCUT Q24H [facility] Last Admin: 06/29/21 10:41 Dose: 40 mg Documented by: KALYANI Ceftriaxone Sodium 1 gm/ (Sodium Chloride) 50 mls @ 100 mls/hr IV Q24H [facility] Last Infusion: 06/29/21 08:22 Dose: 0 mls/hr Documented by: KALYANI Melatonin (Melatonin 3 Mg Tablet) 3 mg PO BEDTIME PRN PRN Reason: Sleep Methylprednisolone Sodium Succinate (Methylprednisolone Sod Succ 40 Mg/Ml Vial) 80 mg IVPUSH Q8H [facility] Multivitamins/Vitamin C (Multivitamin Tablet) 1 tab PO DAILY [facility] Last Admin: 06/29/21 07:56 Dose: 1 tab Documented by: KALYANI Nicotine (Nicotine 21 Mg Patch.Td24) 21 mg TRANSDERMA DAILY [facility] Last Admin: 06/29/21 07:57 Dose: 21 mg Documented by: KALYANI Non-Formulary Medication (Sbvpodawnf-Dfktoarn-Guiqbiurpx [Breztri Aerosphere]) 2 inhalation PO BID [facility] Ondansetron HCl (Ondansetron Hcl 4 Mg/2 Ml Vial) 4 mg IVPUSH Q8H PRN PRN Reason: Nausea and Vomiting Sodium Chloride (0.9 % Sodium Chloride Flush 3 Ml Syringe) 3 ml IVFLUSH QSHIFT [facility] Last Admin: 06/29/21 07:57 Dose: 3 ml Documented by: KALYANI Vitamin D (Cholecalciferol (Vitamin D3) 25 Mcg Tablet) 25 mcg PO DAILY [facility] Last Admin: 06/29/21 07:55 Dose: 25 mcg Documented by: KALYANI Labs CBC & Chem 7: 06/29/21 05:58 06/29/21 07:42 Labs: Laboratory Results - last 24 hr 06/28/21 06/29/21 06/29/21 15:47 05:58 05:58 MCV 99.0 H MCH 31.7 MCHC 32.0 RDW 12.3 Plt Count 179 MPV 9.6 Absolute Nucleated RBC 0.000 Nucleated RBC % (auto) 0.0 O2 Saturation ABG pH at Pt Temp ABG pCO2 at Pt Temp ABG pO2 at Pt Temp ABG HCO3 ABG Base Excess (Actual) VBG pH VBG pCO2 VBG pO2 VBG HCO3 VBG O2 Saturation VBG Base Excess Anion Gap 8 L Estim Creat Clear Calc 116.3 Estimated GFR > 60 POC Glucose Random Glucose 128 H Calcium 9.6 Respiratory Panel Virk See Note Adenovirus (Rapid PCR) Not Detected B.pert (TEM-PCR) Not Detected B.parapertussis DNA PCR Not Detected C. pneumoniae DNA (PCR) Not Detected Coronavirus OC43 (PCR) Detected Coronavirus HKU1 (PCR) Not Detected Coronavirus 229E (PCR) Not Detected Coronavirus NL63 (PCR) Not Detected Human Metapneumovir PCR Not Detected Influenza A (RT-PCR) Not Detected Influenza B (RT-PCR) Not Detected M. pneumoniae (PCR) Not Detected Parainfluenza 1 (PCR) Not Detected Parainfluenza 2 (PCR) Not Detected Parainfluenza 3 (PCR) Not Detected Parainfluenza 4 (PCR) Not Detected RSV (PCR) Not Detected Entero/Rhino (PCR) Not Detected SARS-CoV-2 RNA (RT-PCR) Not Detected 06/29/21 06/29/21 06/29/21 06:04 07:39 07:42 MCV MCH MCHC RDW Plt Count MPV Absolute Nucleated RBC Nucleated RBC % (auto) O2 Saturation ABG pH at Pt Temp ABG pCO2 at Pt Temp ABG pO2 at Pt Temp ABG HCO3 ABG Base Excess (Actual) VBG pH 7.29 L VBG pCO2 87 VBG pO2 29 VBG HCO3 43 H VBG O2 Saturation 37.0 VBG Base Excess 11.3 Anion Gap 9 L Estim Creat Clear Calc 108.2 Estimated GFR > 60 POC Glucose 131 H Random Glucose 126 H Calcium 9.5 Respiratory Panel Virk Adenovirus (Rapid PCR) B.pert (TEM-PCR) B.parapertussis DNA PCR C. pneumoniae DNA (PCR) Coronavirus OC43 (PCR) Coronavirus HKU1 (PCR) Coronavirus 229E (PCR) Coronavirus NL63 (PCR) Human Metapneumovir PCR Influenza A (RT-PCR) Influenza B (RT-PCR) M. pneumoniae (PCR) Parainfluenza 1 (PCR) Parainfluenza 2 (PCR) Parainfluenza 3 (PCR) Parainfluenza 4 (PCR) RSV (PCR) Entero/Rhino (PCR) SARS-CoV-2 RNA (RT-PCR) 06/29/21 10:50 MCV MCH MCHC RDW Plt Count MPV Absolute Nucleated RBC Nucleated RBC % (auto) O2 Saturation 77.0 ABG pH at Pt Temp 7.33 L ABG pCO2 at Pt Temp 63 H* ABG pO2 at Pt Temp 48 L* ABG HCO3 34 H ABG Base Excess (Actual) 5.6 VBG pH VBG pCO2 VBG pO2 VBG HCO3 VBG O2 Saturation VBG Base Excess Anion Gap Estim Creat Clear Calc Estimated GFR POC Glucose Random Glucose Calcium Respiratory Panel Virk Adenovirus (Rapid PCR) B.pert (TEM-PCR) B.parapertussis DNA PCR C. pneumoniae DNA (PCR) Coronavirus OC43 (PCR) Coronavirus HKU1 (PCR) Coronavirus 229E (PCR) Coronavirus NL63 (PCR) Human Metapneumovir PCR Influenza A (RT-PCR) Influenza B (RT-PCR) M. pneumoniae (PCR) Parainfluenza 1 (PCR) Parainfluenza 2 (PCR) Parainfluenza 3 (PCR) Parainfluenza 4 (PCR) RSV (PCR) Entero/Rhino (PCR) SARS-CoV-2 RNA (RT-PCR) Microbiology Microbiology Results: Microbiology 06/28/21 07:22 Blood Culture - Preliminary Blood - Venous No growth after 24 hours. 06/28/21 06:54 Blood Culture - Preliminary Blood - Venous No growth after 24 hours. Assessment and Plan (1) Acute respiratory failure with hypoxia and hypercapnia: Status: Acute (2) COPD exacerbation: Status: Acute (3) Coronavirus infection: Status: Acute Plan hospital d#2 50yo M with COPD + HTN presenting with 1 week of worsening dyspnea, wheezing, and cough productive of yellow sputum.? He is found to be hypoxic with bilateral streaky opacities concerning for pneumonia. # acute hypoxic/hypercapneic respiratory failure - supplemental O2 via NC, goal SaO2 90-92% - Pulm and ICU consulted - acetazolamide to waste excess CO2 + stimulate RR - if worsens, will consider transfer to ICU for BiPAP # COPD exacerbation - increase IV methylprednisolone, standing/prn bronchodilators # coronavirus OC43 [NOT Covid-19] - droplet precautions # CAP - ceftriaxone + doxycycline d#2, follow BCx, trend PCT # hyperK - no EKG changes. given 1 dose SZC + CIRILO-I held; monitor BMP # HTN - monitor off CIRILO-I for now # tobacco abuse - NRT # VTE ppx - LMWH In my clinical judgment, the patient requires continued hospitalization for the following reasons: respiratory failure Quality Stroke Does the patient have a stroke diagnosis?: No VTE Prior VTE?: No VTE Risk Level:: Medical - moderate - high VTE Device Contraindication: N/A - Device Ordered VTE Drug Contraindication: N/A - Med Ordered
[2021-06-29 11:54] LABS: Glucose, Whole Blood 166 mg/dL (60-115)
[2021-06-29] MEDS: acetaZOLAMIDE sodium 500 MG VIAL 250 MG IVPUSH ×2 (12:39→20:47)
[2021-06-29] MEDS: methylPREDNISolone Sod Succ 40 MG/ML VIAL 80 MG IVPUSH ×2 (16:08→23:22)
[2021-06-29 17:10] LABS: ABG Base Excess 5.3 mmol/L; ABG HCO3 34 mmol/L (22-26); ABG pCO2 70 mmHg (32-45); ABG pO2 86 mmHg (83-108)
[2021-06-29 20:30] LABS: ABG Refer to POC result
[2021-06-29] MEDS: Melatonin 3 MG TABLET PO (20:49)
[2021-06-30] VITALS (9 sets, daily range): BP systolic 146–158; BP diastolic 61–78; PULSE 98–129; RESP 12–20; TEMP 36.6–36.8; O2SAT 87–94
[2021-06-30] MEDS: Albuterol/Iprat 2.5/0.5MG 3 ML AMPUL.NEB INHALE ×5 (04:27→19:18)
[2021-06-30 06:07] LABS: Hematocrit 52.5 % (42.0-52.0); Hemoglobin 16.7 g/dl (14.0-18.0); Mean Corpuscular HGB Conc 31.8 g/dl (31.0-36.0); Mean Corpuscular Hemoglobin 32.1 pg (27.0-33.0); Mean Corpuscular Volume 100.8 fL (80.0-98.0); Mean Platelet Volume 9.8 fL (9.4-12.4); Platelet Count 188 X10*3/uL (160-400); Red Blood Count 5.21 X10*6/uL (4.60-5.80); Red Cell Distribution Width 12.2 % (11.0-16.0); White Blood Count 6.5 X10*3/uL (4.8-10.8)
[2021-06-30 06:28] LABS: Anion Gap 11 (12-20); Blood Urea Nitrogen 20 mg/dL (9-16); Calcium 9.9 mg/dL (8.4-10.2); Carbon Dioxide 33 mmol/L (22-29); Chloride 102 mmol/L (96-108); Creatinine Clr Calc Pharmacy 102.2; Estimated Glomerular Filt Rate > 60; Glucose Random 156 mg/dL (60-115); Potassium 4.9 mmol/L (3.3-5.1); Sodium 141 mmol/L (135-145)
[2021-06-30 06:38] LABS: Procalcitonin 0.04 ng/mL
[2021-06-30] MEDS: methylPREDNISolone Sod Succ 40 MG/ML VIAL 80 MG IVPUSH ×3 (07:38→23:17)
[2021-06-30] MEDS: Cholecalciferol (Vitamin D3) 25 MCG TABLET PO (07:39)
[2021-06-30] MEDS: Multivitamin TABLET 1 TAB PO (07:39)
[2021-06-30] MEDS: Nicotine 21 MG PATCH.TD24 TRANSDERMA (07:39)
[2021-06-30] MEDS: buPROPion HCL 75 MG TABLET 150 MG PO (07:39)
[2021-06-30] MEDS: 0.9 % Sodium Chloride Flush 3 ML SYRINGE IVFLUSH ×3 (07:40→20:58)
[2021-06-30] MEDS: cefTRIAXone sodium 1 GM in 0.9 % Sodium Chloride 50 ML IV (07:40)
[2021-06-30 08:04] LABS: Glucose, Whole Blood 131 mg/dL (60-115)
[2021-06-30 09:04] LABS: ABG Base Excess 7.1 mmol/L; ABG HCO3 37 mmol/L (22-26); ABG pCO2 74 mmHg (32-45); ABG pO2 72 mmHg (83-108)
--- NOTE | 2021-06-30 10:02 | P.PNIM_ITS ---
Subjective Subjective Date of Service: 06/30/21 Interval History: Coughing, congested Wheezing Dyspnea improved considerably Review of Systems Review of Systems: Yes all other systems are reviewed and are negative Physical Exam Vital Signs: Vital Signs: Last Vital Signs Temp 97.8 F 06/30/21 07:26 Pulse 103 H 06/30/21 07:50 Resp 18 06/30/21 07:50 BP 151/75 H 06/30/21 07:26 Pulse Ox 92 06/30/21 07:26 BMI result Body Mass Index 25.7 Gen: no distress HEENT: sclera anicteric, moist mucus membranes Neck: supple Lungs: improved air entry, prolonged expiratory wheeze Heart: regular rate, tachycardic no murmurs Abd: soft, non-tender, non-distended Ext: no edema Skin: warm/well-perfused Neuro: alert and oriented x3, no focal findings Psych: appropriate affect Objective Data Active Medications Acetaminophen (Acetaminophen 325 Mg Tablet) 650 mg PO Q6H PRN PRN Reason: Pain, Mild (Pain Scale 1-3) Last Admin: 06/29/21 07:56 Dose: 650 mg Documented by: KALYANI Acetazolamide (Acetazolamide Sodium 500 Mg Vial) 250 mg IVPUSH BID@1000,2200 [facility] Last Admin: 06/29/21 20:47 Dose: 250 mg Documented by: SILVINA Albuterol Sulfate (Albuterol Sulfate (0.083%) 2.5 Mg/3 Ml Vial.Neb) 2.5 mg INHALE Q2H PRN PRN Reason: Shortness of Breath/Wheezing Albuterol/Ipratropium (Albuterol/Iprat 2.5/0.5mg 3 Ml Ampul.Neb) 3 ml INHALE RQ4H WHILE AWAKE [facility] Last Admin: 06/30/21 07:48 Dose: 3 ml Documented by: ESTRELLASALECIA Bupropion HCl (Bupropion Hcl 75 Mg Tablet) 150 mg PO DAILY [facility] Last Admin: 06/30/21 07:39 Dose: 150 mg Documented by: KALYANI Doxycycline Hyclate (Doxycycline Hyclate 100 Mg Tablet) 100 mg PO Q12H [facility] Last Admin: 06/30/21 07:38 Dose: 100 mg Documented by: KALYANI Enoxaparin Sodium (Enoxaparin Sodium 40 Mg/0.4 Ml Syringe) 40 mg SUBCUT Q24H [facility] Last Admin: 06/29/21 10:41 Dose: 40 mg Documented by: KALYANI Ceftriaxone Sodium 1 gm/ (Sodium Chloride) 50 mls @ 100 mls/hr IV Q24H [facility] Last Infusion: 06/30/21 08:43 Dose: 0 mls/hr Documented by: KALYANI Melatonin (Melatonin 3 Mg Tablet) 3 mg PO BEDTIME PRN PRN Reason: Sleep Last Admin: 06/29/21 20:49 Dose: 3 mg Documented by: SILVINA Methylprednisolone Sodium Succinate (Methylprednisolone Sod Succ 40 Mg/Ml Vial) 80 mg IVPUSH Q8H [facility] Last Admin: 06/30/21 07:38 Dose: 80 mg Documented by: KALYANI Multivitamins/Vitamin C (Multivitamin Tablet) 1 tab PO DAILY [facility] Last Admin: 06/30/21 07:39 Dose: 1 tab Documented by: KALYANI Nicotine (Nicotine 21 Mg Patch.Td24) 21 mg TRANSDERMA DAILY [facility] Last Admin: 06/30/21 07:39 Dose: 21 mg Documented by: KALYANI Non-Formulary Medication (Oteoumnyox-Iqacmlkr-Aoihcqtgdl [Breztri Aerosphere]) 2 inhalation PO BID [facility] Ondansetron HCl (Ondansetron Hcl 4 Mg/2 Ml Vial) 4 mg IVPUSH Q8H PRN PRN Reason: Nausea and Vomiting Sodium Chloride (0.9 % Sodium Chloride Flush 3 Ml Syringe) 3 ml IVFLUSH QSHIFT [facility] Last Admin: 06/30/21 07:40 Dose: 3 ml Documented by: KALYANI Vitamin D (Cholecalciferol (Vitamin D3) 25 Mcg Tablet) 25 mcg PO DAILY [facility] Last Admin: 06/30/21 07:39 Dose: 25 mcg Documented by: KALYANI Labs CBC & Chem 7: 06/30/21 05:36 06/30/21 05:36 Labs: Laboratory Results - last 24 hr 06/29/21 06/29/21 06/29/21 10:50 11:23 17:01 MCV MCH MCHC RDW Plt Count MPV Absolute Nucleated RBC Nucleated RBC % (auto) O2 Saturation 77.0 96.0 ABG pH at Pt Temp 7.33 L 7.30 L ABG pCO2 at Pt Temp 63 H* 70 H* ABG pO2 at Pt Temp 48 L* 86 ABG HCO3 34 H 34 H ABG Base Excess (Actual) 5.6 5.3 Anion Gap Estim Creat Clear Calc Estimated GFR POC Glucose 166 H Random Glucose Calcium Procalcitonin 06/30/21 06/30/21 06/30/21 05:36 05:36 05:36 MCV 100.8 H MCH 32.1 MCHC 31.8 RDW 12.2 Plt Count 188 MPV 9.8 Absolute Nucleated RBC 0.000 Nucleated RBC % (auto) 0.0 O2 Saturation ABG pH at Pt Temp ABG pCO2 at Pt Temp ABG pO2 at Pt Temp ABG HCO3 ABG Base Excess (Actual) Anion Gap 11 L Estim Creat Clear Calc 102.2 Estimated GFR > 60 POC Glucose Random Glucose 156 H Calcium 9.9 Procalcitonin 0.04 06/30/21 06/30/21 07:28 08:55 MCV MCH MCHC RDW Plt Count MPV Absolute Nucleated RBC Nucleated RBC % (auto) O2 Saturation 91.0 ABG pH at Pt Temp 7.30 L ABG pCO2 at Pt Temp 74 H* ABG pO2 at Pt Temp 72 L ABG HCO3 37 H ABG Base Excess (Actual) 7.1 Anion Gap Estim Creat Clear Calc Estimated GFR POC Glucose 131 H Random Glucose Calcium Procalcitonin Microbiology Microbiology Results: Microbiology 06/28/21 07:22 Blood Culture - Preliminary Blood - Venous No growth after 48 hours. 06/28/21 06:54 Blood Culture - Preliminary Blood - Venous No growth after 48 hours. Assessment and Plan (1) Acute respiratory failure with hypoxia and hypercapnia: Status: Acute (2) COPD exacerbation: Status: Acute (3) Coronavirus infection: Status: Acute Plan hospital d#3 50yo M with COPD + HTN presenting with 1 week of worsening dyspnea, wheezing, and cough productive of yellow sputum.? He is found to be hypoxic with bilateral streaky opacities concerning for pneumonia and developed hypercanpea as well # acute hypoxic/hypercapneic respiratory failure - supplemental O2 via NC, goal SaO2 90-92% - Pulm and ICU consulted; BiPAP if worsening respiratory distress - continue acetazolamide to waste excess CO2 + stimulate RR # COPD exacerbation - pulse IV methylprednisolone, standing/prn bronchodilators # coronavirus OC43 [NOT Covid-19] - droplet precautions # CAP - ceftriaxone + doxycycline d#3, follow BCx, trend PCT # hyperK - no EKG changes. given 1 dose SZC + CIRILO-I held; resolved # HTN - monitor off CIRILO-I for now # tobacco abuse - NRT # VTE ppx - LMWH In my clinical judgment, the patient requires continued hospitalization for the following reasons: respiratory failure Quality Stroke Does the patient have a stroke diagnosis?: No VTE Prior VTE?: No VTE Risk Level:: Medical - moderate - high VTE Device Contraindication: N/A - Device Ordered VTE Drug Contraindication: N/A - Med Ordered
[2021-06-30] MEDS: Enoxaparin Sodium 40 MG/0.4 ML SYRINGE SUBCUT (10:49)
[2021-06-30] MEDS: acetaZOLAMIDE sodium 500 MG VIAL 250 MG IVPUSH ×2 (10:50→20:58)
[2021-06-30 11:01] LABS: Glucose, Whole Blood 138 mg/dL (60-115)
[2021-06-30 13:03] LABS: ABG Refer to POC result
[2021-06-30] MEDS: Melatonin 3 MG TABLET PO (20:58)
[2021-07-01] VITALS (9 sets, daily range): BP systolic 136–152; BP diastolic 64–82; PULSE 16–120; RESP 15–20; TEMP 36.9–37.1; O2SAT 92–96
[2021-07-01 06:13] LABS: Venous Blood Gas Refer to POC result
--- NOTE | 2021-07-01 06:16 | PC.RT ---
Pt refusing CPAP/BIPAP at this time
[2021-07-01 06:44] LABS: Anion Gap 15 (12-20); Blood Urea Nitrogen 33 mg/dL (9-16); Carbon Dioxide 28 mmol/L (22-29); Chloride 103 mmol/L (96-108); Estimated Glomerular Filt Rate > 60; Glucose Random 142 mg/dL (60-115); Potassium 4.5 mmol/L (3.3-5.1); Sodium 141 mmol/L (135-145)
[2021-07-01] MEDS: Albuterol/Iprat 2.5/0.5MG 3 ML AMPUL.NEB INHALE ×2 (07:54→11:35)
[2021-07-01 08:00] LABS: Glucose, Whole Blood 126 mg/dL (60-115)
[2021-07-01] MEDS: 0.9 % Sodium Chloride Flush 3 ML SYRINGE IVFLUSH ×3 (08:57→23:53)
[2021-07-01] MEDS: cefTRIAXone sodium 1 GM in 0.9 % Sodium Chloride 50 ML IV (08:57)
[2021-07-01] MEDS: methylPREDNISolone Sod Succ 40 MG/ML VIAL 80 MG IVPUSH ×3 (08:58→23:53)
[2021-07-01] MEDS: Nicotine 21 MG PATCH.TD24 TRANSDERMA (08:58)
[2021-07-01] MEDS: buPROPion HCL 75 MG TABLET 150 MG PO (09:03)
[2021-07-01] MEDS: Multivitamin TABLET 1 TAB PO (09:03)
[2021-07-01] MEDS: Cholecalciferol (Vitamin D3) 25 MCG TABLET PO (09:03)
[2021-07-01] MEDS: acetaZOLAMIDE sodium 500 MG VIAL 250 MG IVPUSH ×2 (09:03→21:19)
[2021-07-01] MEDS: Enoxaparin Sodium 40 MG/0.4 ML SYRINGE SUBCUT (09:04)
--- NOTE | 2021-07-01 10:16 | HO.PM.IMPN ---
Subjective Subjective Date of Service: 07/01/21 Interval History: Dyspnea improved Still wheezing and still on oxygen Review of Systems Review of Systems: Yes all other systems are reviewed and are negative Physical Exam Vital Signs: Vital Signs: Last Vital Signs Temp 98.8 F 07/01/21 07:42 Pulse 112 H 07/01/21 07:56 Resp 20 07/01/21 07:56 BP 149/82 H 07/01/21 07:42 Pulse Ox 94 07/01/21 07:42 BMI result Body Mass Index 25.7 Gen: no distress HEENT: sclera anicteric, moist mucus membranes Neck: supple Lungs: improved air entry, prolonged expiratory wheeze Heart: regular rate, tachycardic no murmurs Abd: soft, non-tender, non-distended Ext: no edema Skin: warm/well-perfused Neuro: alert and oriented x3, no focal findings Psych: appropriate affect Objective Data Active Medications Acetaminophen (Acetaminophen 325 Mg Tablet) 650 mg PO Q6H PRN PRN Reason: Pain, Mild (Pain Scale 1-3) Last Admin: 06/29/21 07:56 Dose: 650 mg Documented by: KALYANI Acetazolamide (Acetazolamide Sodium 500 Mg Vial) 250 mg IVPUSH BID@1000,2200 [facility] Last Admin: 07/01/21 09:03 Dose: 250 mg Documented by: LY Albuterol Sulfate (Albuterol Sulfate (0.083%) 2.5 Mg/3 Ml Vial.Neb) 2.5 mg INHALE Q2H PRN PRN Reason: Shortness of Breath/Wheezing Albuterol/Ipratropium (Albuterol/Iprat 2.5/0.5mg 3 Ml Ampul.Neb) 3 ml INHALE RQ4H WHILE AWAKE [facility] Last Admin: 07/01/21 07:54 Dose: 3 ml Documented by: CAMILO Bupropion HCl (Bupropion Hcl 75 Mg Tablet) 150 mg PO DAILY [facility] Last Admin: 07/01/21 09:03 Dose: 150 mg Documented by: LY Doxycycline Hyclate (Doxycycline Hyclate 100 Mg Tablet) 100 mg PO Q12H [facility] Last Admin: 07/01/21 09:03 Dose: 100 mg Documented by: LY Enoxaparin Sodium (Enoxaparin Sodium 40 Mg/0.4 Ml Syringe) 40 mg SUBCUT Q24H [facility] Last Admin: 07/01/21 09:04 Dose: 40 mg Documented by: LY Ceftriaxone Sodium 1 gm/ (Sodium Chloride) 50 mls @ 100 mls/hr IV Q24H [facility] Last Admin: 07/01/21 08:57 Dose: 100 mls/hr Documented by: LY Melatonin (Melatonin 3 Mg Tablet) 3 mg PO BEDTIME PRN PRN Reason: Sleep Last Admin: 06/30/21 20:58 Dose: 3 mg Documented by: SILVINA Methylprednisolone Sodium Succinate (Methylprednisolone Sod Succ 40 Mg/Ml Vial) 80 mg IVPUSH Q8H [facility] Last Admin: 07/01/21 08:58 Dose: 80 mg Documented by: LY Multivitamins/Vitamin C (Multivitamin Tablet) 1 tab PO DAILY [facility] Last Admin: 07/01/21 09:03 Dose: 1 tab Documented by: LY Nicotine (Nicotine 21 Mg Patch.Td24) 21 mg TRANSDERMA DAILY [facility] Last Admin: 07/01/21 08:58 Dose: 21 mg Documented by: LY Non-Formulary Medication (Xzvuzylxpo-Djlnbpvg-Mivlmpezvd [Breztri Aerosphere]) 2 inhalation PO BID [facility] Ondansetron HCl (Ondansetron Hcl 4 Mg/2 Ml Vial) 4 mg IVPUSH Q8H PRN PRN Reason: Nausea and Vomiting Sodium Chloride (0.9 % Sodium Chloride Flush 3 Ml Syringe) 3 ml IVFLUSH QSHIFT [facility] Last Admin: 07/01/21 08:57 Dose: 3 ml Documented by: LY Vitamin D (Cholecalciferol (Vitamin D3) 25 Mcg Tablet) 25 mcg PO DAILY [facility] Last Admin: 07/01/21 09:03 Dose: 25 mcg Documented by: LY Labs CBC & Chem 7: 06/30/21 05:36 07/01/21 05:56 Labs: Laboratory Results - last 24 hr 06/30/21 07/01/21 07/01/21 10:54 05:56 07:45 Anion Gap 15 Estim Creat Clear Calc 99.0 Estimated GFR > 60 POC Glucose 138 H 126 H Random Glucose 142 H Calcium 10.0 Microbiology Microbiology Results: Microbiology 06/30/21 15:44 Gram Stain - Final Sputum - Expectorated Sputum Culture - Final 06/28/21 07:22 Blood Culture - Preliminary Blood - Venous No growth after 48 hours. 06/28/21 06:54 Blood Culture - Preliminary Blood - Venous No growth after 48 hours. Assessment and Plan (1) Acute respiratory failure with hypoxia and hypercapnia: Status: Acute (2) COPD exacerbation: Status: Acute (3) Coronavirus infection: Status: Acute Plan hospital d#4 50yo M with COPD + HTN presenting with 1 week of worsening dyspnea, wheezing, and cough productive of yellow sputum.? He is found to be hypoxic with bilateral streaky opacities concerning for pneumonia and developed hypercanpea as well # acute hypoxic/hypercapneic respiratory failure - supplemental O2 via NC, goal SaO2 90-92% - Pulm and ICU consulted; BiPAP if worsening respiratory distress - continue acetazolamide to waste excess CO2 + stimulate RR # COPD exacerbation - pulse IV methylprednisolone- wean starting tomorrow, standing/prn bronchodilators # coronavirus OC43 [NOT Covid-19] - droplet precautions # CAP - ceftriaxone + doxycycline d#4, follow BCx, PCT low # hyperK - no EKG changes. given 1 dose SZC + CIRILO-I held; resolved # HTN - monitor off CIRILO-I for now # tobacco abuse - NRT # VTE ppx - LMWH In my clinical judgment, the patient requires continued hospitalization for the following reasons: respiratory failure Quality Stroke Does the patient have a stroke diagnosis?: No VTE Prior VTE?: No VTE Risk Level:: Medical - moderate - high VTE Device Contraindication: N/A - Device Ordered VTE Drug Contraindication: N/A - Med Ordered
[2021-07-01 11:39] LABS: Glucose, Whole Blood 145 mg/dL (60-115)
--- NOTE | 2021-07-01 11:42 | PM.PNPUL ---
Subjective Subjective Date of Service: 07/01/21 Interval history: Seen and examined. Feeling a little better. Not using the BIPAP at night. Still on oxygen supplementation. Objective Data Labs CBC & Chem 7: 06/30/21 05:36 07/01/21 05:56 Labs: Laboratory Results - last 24 hr 07/01/21 07/01/21 07/01/21 05:56 07:45 11:07 Sodium 141 Potassium 4.5 Chloride 103 Carbon Dioxide 28 Anion Gap 15 BUN 33 H D Creatinine 0.94 Estim Creat Clear Calc 99.0 Estimated GFR > 60 POC Glucose 126 H 145 H Random Glucose 142 H Calcium 10.0 Microbiology Microbiology Results: Microbiology 06/30/21 15:44 Sputum - Expectorated Gram Stain - Final 06/30/21 15:44 Sputum - Expectorated Sputum Culture - Final 06/28/21 07:22 Blood - Venous Blood Culture - Preliminary No growth after 48 hours. 06/28/21 06:54 Blood - Venous Blood Culture - Preliminary No growth after 48 hours. Review of Systems Review of Systems Constitutional : No Fever, No Chills ENT/Mouth : No sore throat, No Rhinorrhea, No Swallowing Difficulty Eyes: No Eye Pain, No Swelling, No Redness Cardiovascular : No Chest Pain, positive SOB, No Orthopnea, no Edema Respiratory : pos Cough, pos Sputum, pos Wheezing, positive dyspnea Gastrointestinal : No Nausea, No Vomiting, No Diarrhea, No abdominal Pain, No Hematochezia, No Melena Genitourinary : No Dysuria, No Urinary Frequency, No Hematuria Musculoskeletal : No joint pain, No Myalgias Skin : No Skin Lesions, No rash Neuro : No Weakness, No Numbness, No Dizziness, No Headache Psych : No Anxiety/Panic, No Depression Heme/Lymph: No Bruising, No Lymphadenopathy Endocrine : No Polyuria, No Polydipsia All other systems reviewed and are negative Physical Exam Vital Signs: Vital Signs: Last Vital Signs Temp 98.8 F 07/01/21 07:42 Pulse 117 H 07/01/21 11:36 Resp 20 07/01/21 11:36 BP 149/82 H 07/01/21 07:42 Pulse Ox 94 07/01/21 07:42 BMI result Body Mass Index 25.7 Const: General: alert Neck: Neck: Yes normal visual inspection, Yes full ROM and Yes no lymphadenopathy Chest: Chest palpation & inspection: normal inspection of the chest Resp: Auscultation: wheezes and diminished lung sounds Cardio: Rate: regular rate Rhythm: regular rhythm Heart sounds: S1 normal heart sound present and S2 normal heart sound present GI: Palpation (GI): Soft to palpation and nontender Auscultation: normal bowel sounds Skin: General skin exam: rashes and/or lesions noted Procedures Date of Service Date of Service: 07/01/21 Assessment and Plan Assessment and plan (1) Acute and chronic respiratory failure: Status: Acute (2) Coronavirus infection: Status: Acute (3) COPD exacerbation: Status: Acute Plan Continue solumedrol descalate antibiotics Nebulizer therapy oxygen to keep pox>90% Needs to start using the BIPAP 10/5 at night Time Spent With Patient Time: Total time spent is greater than 50% in coordination of care (as documented) at patient's floor/unit and/or counseling patient: Progress Note: Quality Stroke Does the patient have a stroke diagnosis?: No
[2021-07-01] MEDS: Ipratropium Bromide 0.5 MG/2.5 ML SOLUTION INHALE ×2 (15:26→19:15)
[2021-07-01 16:42] LABS: Glucose, Whole Blood 112 mg/dL (60-115)
[2021-07-01] MEDS: Calcium Carbonate 750 MG TAB.CHEW PO (17:30)
[2021-07-01] MEDS: Melatonin 3 MG TABLET PO (21:26)
[2021-07-02 00:38] VITALS: O2SAT 96
--- NOTE | 2021-07-02 05:59 | PC.RT ---
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 Pt was trialed on the bipap machine using a medium full face mask with settings 10/5. pt attempted to wear it but then ripped the mask off stating he doesn't think he can do this all night. pt then refused for the rest of the night.
[2021-07-02 06:09] LABS: Venous Blood Gas Refer to POC result
[2021-07-02 06:48] VITALS: BP 150/82; PULSE 98; RESP 18; TEMP 36.6; O2SAT 98
[2021-07-02 06:53] LABS: Anion Gap 13 (12-20); Blood Urea Nitrogen 36 mg/dL (9-16); Calcium 9.9 mg/dL (8.4-10.2); Carbon Dioxide 27 mmol/L (22-29); Chloride 105 mmol/L (96-108); Creatinine Clr Calc Pharmacy 108.2; Estimated Glomerular Filt Rate > 60; Glucose Random 131 mg/dL (60-115); Potassium 4.4 mmol/L (3.3-5.1); Sodium 141 mmol/L (135-145)
[2021-07-02 07:08] LABS: Glucose, Whole Blood 129 mg/dL (60-115)
[2021-07-02 07:51] VITALS: PULSE 98; RESP 20; O2SAT 98
[2021-07-02] MEDS: Ipratropium Bromide 0.5 MG/2.5 ML SOLUTION INHALE ×2 (07:51→12:19)
[2021-07-02 08:38] VITALS: PULSE 98
[2021-07-02] MEDS: acetaZOLAMIDE sodium 500 MG VIAL 250 MG IVPUSH (09:24)
[2021-07-02] MEDS: cefTRIAXone sodium 1 GM in 0.9 % Sodium Chloride 50 ML IV (09:24)
[2021-07-02] MEDS: methylPREDNISolone Sod Succ 40 MG/ML VIAL IVPUSH (09:24)
[2021-07-02] MEDS: 0.9 % Sodium Chloride Flush 3 ML SYRINGE IVFLUSH (09:24)
[2021-07-02] MEDS: Nicotine 21 MG PATCH.TD24 TRANSDERMA (09:24)
[2021-07-02] MEDS: buPROPion HCL 75 MG TABLET 150 MG PO (09:25)
[2021-07-02] MEDS: Multivitamin TABLET 1 TAB PO (09:25)
[2021-07-02] MEDS: Enoxaparin Sodium 40 MG/0.4 ML SYRINGE SUBCUT (09:25)
[2021-07-02] MEDS: Cholecalciferol (Vitamin D3) 25 MCG TABLET PO (09:25)
[2021-07-02 09:56] VITALS: PULSE 123; PULSE 129; PULSE 132; O2SAT 85; O2SAT 89; O2SAT 91; O2SAT 93
--- NOTE | 2021-07-02 10:34 | W.MHC.F2F ---
Service Date Service Date: 07/02/21 Encounter Date of encounter: 07/02/21 Reasons for Services Signs and symptoms assessed: respiratory home O2, new start Reason for nursing home: medication management, medication treatment and teach disease management Reason for physical therapy: home safety and mobility, therapeutic exercises, gait/transfer training, assess need for DME, ADL training and energy conservation MD Overseeing Care: Yudith Hernandez Homebound: Leaving the home is medically contraindicated at this time without the asist of a device and/or another person due th the listed conditions above and below. Reason homebound: shortness of breath with minimal effort and weakness related to hospital stay Homebound supporting statement: needs 3 L of O2 at rest Certification: Based on the above findings, I certify that this patient is confined to the home and needs intermittent nursing home care, physical therapy and/or speech therapy, or continues to need occupational therapy. The patient is under my care, and I have initiated the establishment of the plan of care. The patient will be followed by a physician who will periodically review the plan of care.
[2021-07-02 11:28] LABS: Glucose, Whole Blood 108 mg/dL (60-115)
[2021-07-02 12:20] VITALS: PULSE 115; RESP 22; O2SAT 92
--- NOTE | 2021-07-02 12:37 | P.DS_ITS ---
DS: Providers Provider Date of Service: 07/02/21 Date of admission: 06/28/21 10:21 Date of discharge: 07/02/21 Primary care physician: Alireza Hernandez MD Consults: 06/28/21 10:19 Consult to Pulmonology Routine Consulting Provider: Elver Pablo Reason for consultation: Dr Pablo's pt admitted for COPD DS: Diagnosis Discharge Diagnosis (1) Coronavirus infection: Status: Acute (2) COPD exacerbation: Status: Acute (3) Acute respiratory failure with hypoxia and hypercapnia: Status: Acute (4) Tobacco dependence: Status: Acute (5) Hyperkalemia: Status: Acute (6) Tobacco abuse: Status: Acute (7) Pneumonia: Status: Acute DS: Summary Hospital Course Hospital Course: from my admission history and physical, 06/28/21: 50yo M with COPD + HTN presenting with 1 week of worsening dyspnea, wheezing, and cough productive of yellow sputum.? 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 Endorses nasal congestion.? No fever or sore throat.? No sick contacts.? Last course of prednisone 6 yr ago.? He sees Dr Pablo at [facility] and is on triple controller inhaler therapy. In the ED, he presented with hypoxia, with SaO2 80% on room air at arrival.? Not on home oxygen.? Given IV glucocorticoid, IV magnesium, ceftriaxone, doxycycline, and 10 mg of nebulized albuterol.? Covid-19 LOUIE negative.? CXR showed hyperinflated luntgs with bilateral streaky mid and lower lung opacities. He was admitted to the hospitalist service. In addition to hypoxia, he had evidence of hypercapnea. He was treated with steroids, bronchodilators, and acetazolamide with improvement in his symptoms. He tested positive for cornavirus OC43, not Covid-19, and droplet precautions were instituted. For pneumonia, he recieve 5 days of ceftriaxone and doxycycline; blood cultures were negative and procalcitonin remained low. He was discharged home with oxygen, prednisone taper, and instructions for follow-up with his osteologist. He was prescribed nicotine patch for tobacco abuse. Due to hyperkalemia, ramipril was discontinued and changed to amlodipine upon discharge. Time Spent with Patient Time attestation: Total time spent providing and/or coordinating discharge services: Discharge coordination time: Greater than 30 minutes Quality: Safe Use of Opioids Does Pt have an Active Cancer Diagnosis on the Problem List?: No Quality: Stroke Does the patient have a stroke diagnosis?: No Physical Exam Vital Signs: Vital Signs: VS: T 97.8, P 98, R 18, BP 150/82 Gen: NAD HEENT: sclera anicteric, moist mucus membranes Neck: supple Lungs: soft expiratory wheeze Heart: regular rate and rhythm, no murmurs Abd: soft, non-tender, non-distended Ext: no edema Skin: warm/well-perfused Neuro: alert and oriented x3, no focal findings Psych: appropriate affect DS: Data Data Completed and Pending Completed studies during hospitalization [Text1]: Laboratory Results WBC 6.5 X10*3/uL (4.8-10.8) 06/30/21 05:36 RBC 5.21 X10*6/uL (4.60-5.80) 06/30/21 05:36 Hgb 16.7 g/dl (14.0-18.0) 06/30/21 05:36 Hct 52.5 % (42.0-52.0) H 06/30/21 05:36 MCV 100.8 fL (80.0-98.0) H 06/30/21 05:36 MCH 32.1 pg (27.0-33.0) 06/30/21 05:36 MCHC 31.8 g/dl (31.0-36.0) 06/30/21 05:36 RDW 12.2 % (11.0-16.0) 06/30/21 05:36 Plt Count 188 X10*3/uL (160-400) 06/30/21 05:36 MPV 9.8 fL (9.4-12.4) 06/30/21 05:36 Immature Gran % (Auto) 0.4 % (0.0-0.4) 06/28/21 06:52 Neut % (Auto) 65.6 % (45-73) 06/28/21 06:52 Lymph % (Auto) 13.6 % (20-40) L 06/28/21 06:52 [place] % (Auto) 18.0 % (2-11) H 06/28/21 06:52 Eos % (Auto) 1.6 % (0-4) 06/28/21 06:52 Baso % (Auto) 0.8 % (0-2) 06/28/21 06:52 Lymph # (Auto) 1.1 X10*3/uL (1.2-4.9) L 06/28/21 06:52 [place] # (Auto) 1.4 X10*3/uL (0.1-1.2) H 06/28/21 06:52 Eos # (Auto) 0.1 X10*3/uL (0.0-0.4) 06/28/21 06:52 Baso # (Auto) 0.1 X10*3/uL (0.0-0.2) 06/28/21 06:52 Abs Immat Gran (auto) 0.03 X10*3/uL (0.00-0.03) 06/28/21 06:52 Absolute Neuts (auto) 5.2 x10*3/uL (2.0-8.3) 06/28/21 06:52 Absolute Nucleated RBC 0.000 X10*3/uL (0.0-0.012) 06/30/21 05:36 Nucleated RBC % (auto) 0.0 /100WBC (0.0-0.2) 06/30/21 05:36 O2 Saturation 91.0 % 06/30/21 08:55 ABG pH at Pt Temp 7.30 (7.35-7.45) L 06/30/21 08:55 ABG pCO2 at Pt Temp 74 mmHg (32-45) H* 06/30/21 08:55 ABG pO2 at Pt Temp 72 mmHg (83-108) L 06/30/21 08:55 ABG HCO3 37 mmol/L (22-26) H 06/30/21 08:55 ABG Base Excess (Actual) 7.1 mmol/L 06/30/21 08:55 VBG pH 7.29 (7.32-7.43) L 06/29/21 06:04 VBG pCO2 87 mmHg 06/29/21 06:04 VBG pO2 29 mmHg 06/29/21 06:04 VBG HCO3 43 mmol/L (22-26) H 06/29/21 06:04 VBG O2 Saturation 37.0 % 06/29/21 06:04 VBG Base Excess 11.3 mmol/L 06/29/21 06:04 Sodium 141 mmol/L (135-145) 07/02/21 05:54 Potassium 4.4 mmol/L (3.3-5.1) 07/02/21 05:54 Chloride 105 mmol/L (96-108) 07/02/21 05:54 Carbon Dioxide 27 mmol/L (22-29) 07/02/21 05:54 Anion Gap 13 (12-20) 07/02/21 05:54 BUN 36 mg/dL (9-16) H 07/02/21 05:54 Creatinine 0.86 mg/dL (0.5-1.4) 07/02/21 05:54 Estim Creat Clear Calc 108.2 07/02/21 05:54 Estimated GFR > 60 07/02/21 05:54 POC Glucose 108 mg/dL (60-115) 07/02/21 11:15 Random Glucose 131 mg/dL (60-115) H 07/02/21 05:54 Lactic Acid 1.1 mmol/L (0.5-2.0) 06/28/21 06:52 Calcium 9.9 mg/dL (8.4-10.2) 07/02/21 05:54 Total Bilirubin 0.5 mg/dL (0.0-1.0) 06/28/21 06:52 Direct Bilirubin 0.2 mg/dL (0.0-0.5) 06/28/21 06:52 AST 24 U/L (5-37) 06/28/21 06:52 ALT 20 U/L (0-40) 06/28/21 06:52 Alkaline Phosphatase 75 U/L (39-117) 06/28/21 06:52 Troponin I High Sens 5.8 ng/L (<3.5-35.0) 06/28/21 10:38 Total Protein 7.3 g/dL (6.5-8.0) 06/28/21 06:52 Albumin 4.2 g/dL (3.5-5.0) 06/28/21 06:52 Procalcitonin 0.04 ng/mL 06/30/21 05:36 Respiratory Panel Virk See Note 06/28/21 15:47 Adenovirus (Rapid PCR) Not Detected (Not Detect.) 06/28/21 15:47 B.pert (TEM-PCR) Not Detected (Not Detect.) 06/28/21 15:47 B.parapertussis DNA PCR Not Detected (Not Detect.) 06/28/21 15:47 C. pneumoniae DNA (PCR) Not Detected (Not Detect.) 06/28/21 15:47 Coronavirus OC43 (PCR) Detected (Not Detect.) 06/28/21 15:47 Coronavirus HKU1 (PCR) Not Detected (Not Detect.) 06/28/21 15:47 Coronavirus 229E (PCR) Not Detected (Not Detect.) 06/28/21 15:47 COVID-19 (LOUIE) Negative (Negative) 06/28/21 07:22 COVID-19 Clin Com See Note 06/28/21 07: Coronavirus NL63 (PCR) Not Detected (Not Detect.) 06/28/21 15:47 Human Metapneumovir PCR Not Detected (Not Detect.) 06/28/21 15:47 Influenza A (RT-PCR) Not Detected (Not Detect.) 06/28/21 15:47 Influenza B (RT-PCR) Not Detected (Not Detect.) 06/28/21 15:47 M. pneumoniae (PCR) Not Detected (Not Detect.) 06/28/21 15:47 Parainfluenza 1 (PCR) Not Detected (Not Detect.) 06/28/21 15:47 Parainfluenza 2 (PCR) Not Detected (Not Detect.) 06/28/21 15:47 Parainfluenza 3 (PCR) Not Detected (Not Detect.) 06/28/21 15:47 Parainfluenza 4 (PCR) Not Detected (Not Detect.) 06/28/21 15:47 RSV (PCR) Not Detected (Not Detect.) 06/28/21 15:47 Entero/Rhino (PCR) Not Detected (Not Detect.) 06/28/21 15:47 SARS-CoV-2 RNA (RT-PCR) Not Detected (Not Detect.) 06/28/21 15:47 Impressions Chest X-Ray 06/28/21 08:51 IMPRESSION: 1. Hyperinflation the bilateral lung pittman with flattening of the diaphragms corresponding to emphysematous changes. 2. Streaky and patchy opacities involving the bilateral mid to lower lung pittman suggesting an infectious/inflammatory etiology. Correlation with symptomatology. Head CT 06/29/21 05:45 IMPRESSION: *No acute intracranial abnormalities. *Findings suspicious for mild-moderate chronic pansinusitis. Discharge Plan Discharge Patient Disposition: Home Health Service Discharge Diagnosis: COPD exacerbation Acute/chronic hypoxic respiratory failure Chronic hypercarbic respiratory failure Coronavirus OC43 infection [NOT Covid-19, but rather, a virus that causes the common cold] Pneumonia Hyperkalemia Tobacco abuse Referrals: Alireza Hernandez MD [Primary Care Provider] - 1 Week Elver Pablo MD [Physician] - 1 Week Discharge Medications: New nicotine 21 mg/24 hr Patch 24 Hour 21 mg transdermal DAILY Qty: 30 0RF amlodipine 5 mg tablet 5 mg PO DAILY Qty: 30 0RF Rx Instructions: replaces ramipril prednisone 10 mg tablet See Rx Instructions .ROUTE .COMPLEX Qty: 40 0RF Rx Instructions: 40 mg daily x 4 days, then 30 mg daily x 4 days, then 20 mg daily x 4 days, then 10 mg daily x 4 days, then stop Continued Breztri Aerosphere 160-9-4.8 mcg/actuation HFA aerosol inhaler 2 inh PO BID Qty: 10.7 11RF bupropion HCl 75 mg tablet 150 mg PO DAILY 0RF melatonin 3 mg Tablet 3 mg PO BEDTIME PRN (Reason: Sleep) 0RF cholecalciferol (vitamin D3) 25 mcg (1,000 unit) capsule 25 mcg PO DAILY 0RF multivitamin Tablet 1 tab PO DAILY 0RF albuterol sulfate 90 mcg/actuation HFA aerosol inhaler 1 - 2 puff inhalation Q4H 0RF Discontinued ramipril 10 mg capsule 10 mg PO DAILY 0RF Discharge Orders: Discharge Order (Routine); Ordered 07/02/21 Ordered By: Raul Mora Diet: advance to usual diet Activity on Discharge: As tolerated Stand Alone Forms: Patient Portal Discharge page Care Plan Goals: recovery from COPD exacerbation Health Concerns: COPD exacerbation Acute/chronic hypoxic respiratory failure Chronic hypercarbic respiratory failure: fo Coronavirus OC43 infection [NOT Covid-19, but rather, a virus that causes the common cold] Pneumonia Hyperkalemia Tobacco abuse Plan of Treatment: take prednisone taper as follows: 40 mg daily x 4 days, then 30 mg daily x 4 days, then 20 mg daily x 4 days, then 10 mg daily x 4 days. continue your controller inhaler [Breztri] and use albuterol for rescue supplemental oxygen, 3 liters via nasal cannula follow up with Primary Care and Pulmonology in 1 week antibiotics completed stop smoking; use nicotine patch to help you quit STOP ramipril due to hyperkalemia; switch to amlodipine 5mg daily for blood pressure contrl Assessment: See Discharge Summary Patient Instructions: Using Oxygen at Home (DC)
[2021-07-02 14:16] LABS: VBG Base Excess 0.6 mmol/L; VBG HCO3 29 mmol/L (22-26); VBG pCO2 60 mmHg; VBG pH 7.28 (7.32-7.43); VBG pO2 61 mmHg
[2021-07-02 14:23] LABS: VBG Base Excess 3.9 mmol/L; VBG HCO3 34 mmol/L (22-26); VBG pCO2 75 mmHg; VBG pH 7.26 (7.32-7.43); VBG pO2 66 mmHg
--- NOTE | 2021-07-02 15:09 | MHC.CM.PN ---
Addendum entered by Marielle Rodriguez 07/02/21 15:36: CM RECEIVED A RETURN CALL FROM PTS , AURELIANO WHO REPORTS THEY DO NOT FEEL VNA IS NECESSARY SHE REPORTS SHE WILL BE HOME WITH THE PT TOMORROW AND RECEIVED SOME EDUCATION FROM THE [facility] NURSE PRIOR TO DC TO HOW TO SET PTS O2 UP. SHE ALSO EXPECTS [facility] WILL PROVIDE A TEACH WHEN THEY DELIVER SUPPLIES. SHE IS AWARE SHE CAN CALL CM BACK TODAY OR TOMORROW TO ARRANGE VNA IF SHE FINDS SHE NEEDS THEM Original Note: PT WAS DISCHARGED HOME TODAY WITH ORDERS FOR NEW VNA DUE TO NEW HOME O2. CM UNABLE TO SECURE VNA HOWEVER PT HAD ALREADY LEFT CM ATTEMPTED TO CONTACT PT USING PHONE NUMBER LISTED, [phone], HOWEVER NO ONE ANSWERED AND NO VM WAS AVAILABLE. CM ATTEMPTED TO CONTACT PTS , AURELIANO [phone], HOWEVER THERE WAS NO ANSWER AT THAT NUMBER EITHER. A VM MESSAGE WAS LEFT ON [facility] PHONE INFORMING THEM OF ISSUE AND REQUESTING A RETURN CALL
== END 2021-07-02 14:38 | disposition home health service (06) | DRG 139 ==
LOC: HO.ED 07:53 → HO.EDOVER 10:26 → HO.S3 17:49
PROVIDERS: Internal Medicine Pulmonary Disease; Admitting Provider Family Medicine; Emergency Provider Emergency Medicine; PCP Internal Medicine; Visit Provider Family Medicine
DX: J18.9 Pneumonia, unspecified organism (principal); J96.01 Acute respiratory failure with hypoxia; J44.0 Chronic obstructive pulmonary disease with (acute) lower respiratory infection; J68.3 Other acute and subacute respiratory conditions due to chemicals, gases, fumes and vapors; E87.5 Hyperkalemia; I10 Essential (primary) hypertension; B97.29 Other coronavirus as the cause of diseases classified elsewhere; F17.210 Nicotine dependence, cigarettes, uncomplicated; Z71.6 Tobacco abuse counseling; Z20.822 Contact with and (suspected) exposure to COVID-19; Z88.8 Allergy status to other drugs, medicaments and biological substances; Z79.899 Other long term (current) drug therapy
CPT/HCPCS: 36415; 36600; 70450; 71045; 80048; 80076; 82803; 82947; 83605; 84145; 84484; 85025; 85027; 87040; 87070; 87205; 87633; 87635; 93005; 94640; 94644; 94645; 96361; 96365; 96366; 97162; 99284; 99291; J0610; J0696; J1650; J2920; J2930; J3475

== ENCOUNTER → 2021-07-11 09:30 | Outpatient (BNVA) | payer BC, SELFPAY | PROVIDERS: PCP Internal Medicine; Visit Provider Hospitalist | DX: J44.9 Chronic obstructive pulmonary disease, unspecified (principal) | CPT/HCPCS: 94618 ==

== ENCOUNTER 2021-07-27 13:10 | Outpatient (REF) | payer BC, SELFPAY ==
--- NOTE | ~2021-07-27 | CT_ITS ---
EXAMINATION: CT CHEST WITHOUT CONTRAST CLINICAL INFORMATION: Solitary pulmonary nodule. COMPARISON: CT chest without contrast 05/17/2020. TECHNIQUE: Multidetector volumetric CT imaging of the chest was done. Axial MIP volume rendering provided. Sagittal and coronal reformatted images were obtained. This CT examination was performed using dose optimization techniques as appropriate, variously including the following: *Automated exposure control *Adjustment of mA and/or kV according to patient size (this includes techniques or standardized protocols for targeted exams where dose is matched to indication/reason for exam; i.e. extremities or head) *Use of iterative reconstruction technique DLP: 173 mGy-cm FINDINGS: DRY CANS BACK TENDER: Well-expanded lungs. LUNGS: There is centrilobular emphysema without acute pneumonic process. There is a 4 mm nodule left upper lobe peripherally based, axial image 180/7; 2 mm nodule right lower lobe, axial image 261/7; subpleural linear densities right upper lobe, axial image 283/7; 3 mm nodule right lower lobe, axial image 303/7, new; 5 mm nodule right lower lobe superior segment, axial image 350/7, stable; 4 mm nodule right upper lobe laterally, axial image 316/7, stable. No other nodules seen. There is lingular atelectasis. MEDIASTINUM: The thyroid lobes are symmetric and normal. The central trachea and the bronchi are widely patent. The heart size and the great vessels are normal caliber. No abnormal-size mediastinal or hilar lymph nodes seen. There is no pericardial effusion. PLEURA: There is no pleural effusion. No pleural mass or thickening. AXILLA: No lymphadenopathy. UPPER ABDOMEN: Visualized liver, spleen, pancreas and bilateral adrenal glands are unremarkable. OSSEOUS STRUCTURES: No lytic or sclerotic process seen. Minimal ventral spondylosis seen. CT/CT chest wo con IMPRESSION: Diffuse centrilobular emphysema with stable pulmonary nodules. There is a new nodule in the right lower lobe measuring 3 mm. No abnormal mediastinal or axillary adenopathy seen. Recommend continued follow up in 18-24 months. Fleischner guidelines were followed.
== END 2021-07-27 13:11 | disposition home or self-care (01) ==
LOC: HO.CT 13:10
PROVIDERS: Visit Provider Hospitalist
DX: R91.1 Solitary pulmonary nodule (principal)
CPT/HCPCS: 71250

== ENCOUNTER 2022-04-02 13:56 | Outpatient (REF) | payer BC, SELFPAY ==
--- NOTE | 2022-04-02 15:20 | PFT_ITS ---
FLOWS: FEV1 33% of predicted at 1.35 L. FVC 91% predicted at 4.73 L FEV1 to FVC ratio 0.29. Positive bronchodilator response. LUNG VOLUMES: Total lung capacity 131% of predicted at 9.40 L. Residual volume 246% of predicted at 5.29 L. Slow vital capacity 81% of predicted at 4.11 L. Expiratory reserve volume 115% of predicted at 1.78 L. Diffusion capacity is mildly decreased. IMPRESSION: Severe obstructive ventilatory defect with positive bronchodilator response. Increased total lung capacity suggests hyperinflation. Increased residual volume suggests airtrapping. Decreased diffusion capacity suggests emphysema. MD CHANTEL Gutierrez/MODL / [id number]
== END 2022-04-02 13:57 | disposition home or self-care (01) ==
LOC: HO.RESP 13:56
PROVIDERS: PCP Internal Medicine; Visit Provider Hospitalist
DX: J44.1 Chronic obstructive pulmonary disease with (acute) exacerbation (principal)
CPT/HCPCS: 94060; 94727; 94729

== ENCOUNTER → 2022-04-23 13:55 | Outpatient (BNVA) | payer BC, SELFPAY | PROVIDERS: PCP Internal Medicine; Visit Provider Hospitalist | DX: Z13.89 Encounter for screening for other disorder (principal) ==

== ENCOUNTER 2022-10-12 09:17 | Outpatient (REF) | payer BC, SELFPAY ==
[2022-10-12 09:31] LABS: MANUAL DIFF FLAG NO
[2022-10-12 09:58] LABS: Basophils Absolute Auto 0.1 X10*3/uL (0.0-0.2); Basophils Percent Auto 0.8 % (0-2); Eosinophils Absolute Auto 0.3 X10*3/uL (0.0-0.4); Hematocrit 48.6 % (42.0-52.0); Hemoglobin 16.8 g/dl (14.0-18.0); Imm Gran Abs Auto 0.03 X10*3/uL (0.00-0.03); Imm Gran Pct Auto 0.3 % (0.0-0.4); Lymphocytes Absolute Auto 2.2 X10*3/uL (1.2-4.9); Lymphocytes Percent Auto 24.8 % (20-40); Mean Corpuscular HGB Conc 34.6 g/dl (31.0-36.0); Mean Corpuscular Hemoglobin 32.7 pg (27.0-33.0); Mean Corpuscular Volume 94.7 fL (80.0-98.0); Mean Platelet Volume 9.6 fL (9.4-12.4); Monocytes Absolute Auto 1.2 X10*3/uL (0.1-1.2); Monocytes Percent Auto 13.8 % (2-11); Neutrophils Percent Auto 57.3 % (45-73); Platelet Count 260 X10*3/uL (160-400); Red Blood Count 5.13 X10*6/uL (4.60-5.80); Red Cell Distribution Width 11.9 % (11.0-16.0); White Blood Count 8.7 X10*3/uL (4.8-10.8)
[2022-10-12 10:08] LABS: Venous Blood Gas Refer to POC result
[2022-10-12 10:11] LABS: VBG Base Excess 7.3 mmol/L; VBG HCO3 34 mmol/L (22-26); VBG pCO2 56 mmHg; VBG pH 7.39 (7.32-7.43); VBG pO2 31 mmHg
[2022-10-12 10:34] LABS: Anion Gap 12 (12-20); Blood Urea Nitrogen 11 mg/dL (9-16); Calcium 9.8 mg/dL (8.4-10.2); Carbon Dioxide 31 mmol/L (22-29); Chloride 98 mmol/L (96-108); Erythrocyte Sedimentation Rate 2 MM/HR (0-15); Estimated Glomerular Filt Rate > 60; Glucose Random 100 mg/dL (60-115); Potassium 4.3 mmol/L (3.3-5.1); Sodium 137 mmol/L (135-145)
== END 2022-10-12 09:18 | disposition home or self-care (01) ==
LOC: HO.LAB 09:17
PROVIDERS: PCP Internal Medicine; Visit Provider Hospitalist
DX: J96.21 Acute and chronic respiratory failure with hypoxia (principal); J96.22 Acute and chronic respiratory failure with hypercapnia; J44.1 Chronic obstructive pulmonary disease with (acute) exacerbation
CPT/HCPCS: 36415; 80048; 82803; 85025; 85652

== ENCOUNTER 2022-10-14 15:32 | Outpatient (AMB) | payer BC, SELFPAY ==
--- NOTE | 2022-10-14 15:40 | MHC.OFFVIS ---
Intake Vital Signs 10/14/22 15:41 Height 5 ft 11 in Weight 175 lb BMI 24.4 Pulse 93 Pulse Source Pulse Oximeter Pulse Oximetry (%) 93 Oxygen Delivery Method Room Air Intake Visit Reasons: COPD Bank Advisor Required: No Allergies varenicline [From Chantix] Adverse Reaction (Mild, Verified 10/14/22 15:42) Nightmare HPI HPI Comments History of Present Illness Details The patient is a 52 year-old gentleman tobacco dependency who apparently about 2-3 years ago developed worsening respiratory symptoms and was evaluated at [facility]. There he was diagnosed with an exacerbation. He was set up with Pulmonary and he was being monitored there. He did have pulmonary function studies and will try to get my hands on. The meantime the patient continues smoking. He did not follow up with the dining room helper. 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 Denies any significant exposure to asbestos studies were off. The patient was laid off during the significant part of the pandemic. While he was at home late off he was smoking more he was depressed he was not doing much activity. Now he is back to working he feels short of breath. Moderate severity with any activity. He has also had productive cough. We were able to look at his previous imaging studies. He did have a CT scan of the abdomen at [facility] due to abdominal discomfort and some other GI issues that he has. In the meantime the lung windows did demonstrate significant bronchitis in addition to some areas of bronchiectasis. In the left lower lobe there was nodular density. At this point based on his high risk of malignancy in smoking the patient needs to have this followed up with the proper CT scan of the chest. The patient also needs to have a on the pulmonary function study to reassess his pulmonary capacity. He has significant bronchitis and therefore that will be treated as well. The patient understands that with his early on to COPD and significant bronchitis and respiratory symptoms he needs to quit smoking. He is willing to try Wellbutrin in addition to the nicotine patch. Will continue monitoring closely P will have come back after his CT scan and PFTs. 06/13/2020 the patient is here for pulmonary follow-up visit. Overall the patient is doing a little better. He is using his inhaler as prescribed. He also started the azithromycin 3 times a week. His cough is overall better as well. He continues to have shortness of breath with activity. He also continues to smoke. He is trying to cut down. He is tolerating the Wellbutrin which is also helping with his cravings. We did review his pulmonary function studies demonstrating severe COPD. He has severe air trapping which is causing significant dyspnea on exertion. We talked about different techniques to help with that. He is going to looking to getting a Harmonic up. The patient has a moderate diffusion impairment. He also he did have a CT scan of the chest that was personally reviewed by me demonstrating small pulmonary nodules along with moderate degree of emphysema primarily in the upper lung zones. For this point the patient should have a repeat CT scan in a year's time to assure stability. He is only 49 years old with severe COPD. There is a positive family history of COPD. I did offer him to do the alpha-1 testing. But, he wanted to hold off to the next visit to get that done. 12/29/2020 the patient is here for pulmonary follow-up visit. He continues on the Breztri with good effect. Also has his rescue inhaler that he uses daily. Recently, he was working in a very [place] work site. He noticed that his breathing was much worse. He has been having to use his rescue inhaler more often on a daily basis. Unfortunately continues to smoke cigarettes. We talked about different options as far as tobacco cessation. The patient does have severe COPD already at a young age and I am concerned that if he keeps his he will have very limited respiratory capacity. 07/11/2021 the patient is here for a pulmonary follow-up visit. Since we last spoke he was hospitalized with a viral syndrome in a COPD exacerbation. He had acute on chronic hypercarbic and hypoxic respiratory failure. Do significantly acidotic. However, he had a hard time tolerating BiPAP. the patient understands that the BiPAP is to help him released to CO2. Even with that though he has a hard time with the idea of using something at home. Will continue having this discussion. The patient also was discharged on oxygen. He feels that he is doing better. We did go for brief this 6 minutes walk test in the office. The patient did desaturated again to 88%. The patient needs to continue to use the oxygen with activity. 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 I did recommend that he stays with a desk job for another month. Unfortunately, he went back to smoking. He is not smoking as much as he did before but he is having hard time quitting completely. He is currently on a nicotine patch. Will continue to monitor his progress with smoking cessation. He continues uses respiratory therapy. In addition, we did review his last CT scan of the chest that was done back in May 2020 where he was found to have the emphysema and also multiple pulmonary nodules subcentimeter in nature. He needs to have a repeat CT scan. however, will wait to schedule during his follow-up to make sure that there is resolution of the acute process that he is just recovering from. The patient also would like to hold off on any noninvasive ventilator or BiPAP at this time. 10/15/2021 the patient is here for a pulmonary follow-up visit. He is starting to feel better. He is back to his baseline. He is back to work. He is using the oxygen at nighttime. He rarely uses it during the daytime. When he works typically is sitting down he does not get significantly winded. We did talk about smoking cessation. The patient has been struggling. He does want to quit. He had a reaction to an unclear medications therefore he took off his nicotine patch. But he will rechallenging self to make sure that it was not the patch that he was allergic to. I also did recommend that he starts other alternative still back on cessation such as a knows this. I did give him information to call in order to make arrangements to undergo hypnosis. At this time the patient understands that his with his severe lung disease It appears that be rapidly progressing. Also, with the exacerbations any not be able to get back to his baseline. I am concerned that if he continues to progress in this fashion his respiratory capacity will be very limited and at that point a candidate for lung transplantation if he is able to completely quit smoking. He had tried noninvasive therapy while in the hospital. During the next visit will reassess his CO2. He is also going to undergo pulmonary function studies. I did recommend that he quit smoking prior to undergoing the pulmonary function study to see improvement. 04/23/2022 the patient is here for a pulmonary follow-up visit. He is here with significant other. Overall the patient has been feeling better. He to use his respiratory therapy with good effect. He also has the oxygen that he uses with activity. He has been trying to cut down on the smoking. He is going to get hypnotized in the coming days. In the meantime he knows to be very careful with the smoking and the oxygen as this can result in significant injury. Continues with respiratory therapy with good effect. We did review his pulmonary function studies there appears to be a trend decrease from his FEV1. Now he has very severe COPD. He understands that he does not have any more lung to lose. We also talked about his elevated CO2. Will go ahead and which is request a venous gas. If his CO2 continues to be elevated then a noninvasive ventilator will be helpful in improving his gas exchange improving his prognosis and also his quality of life. He continues on the Wellbutrin which will continue for now. We also talked about the importance of pulmonary rehabilitation and disc likes also using Harmonic a to help with significant air trapping. Due to his severity of disease once the patient quit smoking we can consider lung volume reduction interventions to help with the air trapping and also in the future can consider lung transplant if his condition continues to worsen further. However, hopeful that if he quit smoking we see some stability of disease that continue to do well in his recovery. As it is already wheezing some improvement in his gas exchange which is reassuring. Although, the gas exchange can also be affected by his exogenous carbon monoxide exposure from smoking. 10/14/2022 the patient is here for pulmonary follow-up visit. Overall he is feeling a little bit better. He did have a blood repeat blood gas. It appears that his pCO2 so also slightly improved at 56 mmHg. His pH now is within normal limits. The patient still qualifies for noninvasive ventilator although patient electing to use the noninvasive ventilator at this time. Will continue to monitor his respiratory symptoms and will look into a noninvasive ventilator in the future. He continues to use his respiratory therapy. Although, continues to have significant wheezing and chest tightness. Will provide him a nebulizer. He can use it twice a day. He has been trying to quit smoking. He did try hypnosis it was initially helpful but then he skips or missed a session and then it became not helpful. The patient did not tolerate Chantix although this may be something may have to revisit. We did review his PFTs demonstrating a very severe obstruction which appears to be worsening when compared to 2020. patient also has very significant air trapping and we did talk about potential lung volume reduction interventions. He will talk to his regarding these procedures. Still, he needs to quit smoking. I think this be the most important intervention that he can take. We did perform a alpha-1 antitrypsin DNA swab today. Hopefully will get that in the coming weeks. [facility] Medical History (Updated 04/23/22 @ 14:27 by Elver Pablo MD) Acute and chronic respiratory failure Acute on chronic respiratory failure with hypoxia and hypercapnia Acute respiratory failure with hypoxia Acute respiratory failure with hypoxia and hypercapnia COPD (chronic obstructive pulmonary disease) COPD (chronic obstructive pulmonary disease) COPD exacerbation Coronavirus infection History of diverticulitis Hypercapnic respiratory failure Hypertension Pulmonary nodule Tobacco abuse Tobacco dependence Surgical History History of hernia repair History of partial colectomy Social History Household Members: Spouse Housing: House Alcohol intake: current Alcohol intake frequency: 0-2 drinks per day Alcohol type: beer Patient Tobacco Use Status: Current everyday Tobacco user Tobacco use type: Cigarette Cigarette Packs Per Day: 1 Cigarettes Per Day: 5 Years Smoked: 30 years Second Hand Smoke Exposure: No Substance Use Type: Marijuana service: No Current occupational status: employed Review of Systems Const Denies night sweats ENT Denies change in voice, Denies lip swelling, Denies mouth pain, Reports nasal congestion, Reports nasal discharge and Denies tongue swelling Card Denies chest pain and Reports dyspnea on exertion Resp Reports cough, Reports dyspnea on exertion and Reports wheezing GI Denies abdominal pain Musc Denies no additional complaints Neuro Denies Neuro-related abnormal movements Psych Denies no additional complaints Arpit/Lymph Denies easy bleeding and Denies lymphadenopathy Aller/Immun Denies lip swelling, Denies tongue swelling and Reports wheezing Physical Exam Vital Signs: Last Vital Signs Pulse 93 10/14/22 15:41 Pulse Ox 93 10/14/22 15:41 Oxygen Delivery Method Room Air 10/14/22 15:41 BMI result Body Mass Index 24.4 Const General: alert Neck Neck: Yes normal visual inspection, Yes full ROM and Yes no lymphadenopathy Chest Chest palpation & inspection: normal inspection of the chest Resp Effort & Inspection: prolonged expiratory phase Auscultation: wheezes and diminished lung sounds Cardio Rate: regular rate Rhythm: regular rhythm Heart sounds: S1 normal heart sound present and S2 normal heart sound present GI Palpation (GI): Soft to palpation and nontender Auscultation: normal bowel sounds Skin General skin exam: rashes and/or lesions noted Assessment & Plan Assessment & Plan (1) COPD (chronic obstructive pulmonary disease): Code(s): J44.9 - Chronic obstructive pulmonary disease, unspecified Qualifiers: COPD type: COPD with acute exacerbation Qualified Code(s): J44.1 - Chronic obstructive pulmonary disease with (acute) exacerbation Plan: Very severe based on his recent PFTs (2) Tobacco dependence: Code(s): F17.200 - Nicotine dependence, unspecified, uncomplicated (3) Pulmonary nodule: Code(s): R91.1 - Solitary pulmonary nodule (4) Hypercapnic respiratory failure: Code(s): J96.92 - Respiratory failure, unspecified with hypercapnia Qualifiers: Chronicity: chronic Qualified Code(s): J96.12 - Chronic respiratory failure with hypercapnia Plan Continue oxygen 2 L with activity consider NIV in the future Continue respiratory therapy; Breztri, PAOLO Continue azithromycin 3 times a week consider Theophylline continue Wellbutrin 150mg BID. We may have to revisit Chantix at somepoint nebulizer provided to use BID with Duoneb Pulmonary exercise. Needs to get a Harmonic out to start working with air trapping consider lung volume reduction interventions, he will discuss with his spouse completed alpha 1 testing Follow-up in 4-6 months Medications: New ipratropium-albuterol 0.5 mg-3 mg(2.5 mg base)/3 mL 3 mL inhalation BID 30 days 180 mL 11RF J44.9 - Chronic obstructive pulmonary disease, unspecified Quality Reporting (2019) Adult ([facility] 138/04/24/68) Smoking risk assessment performed?: Yes Patient Tobacco Use Status: Current everyday Tobacco user Coding Level of Care Code Est Pt Level 4 (86089) Diagnoses COPD (chronic obstructive pulmonary disease) J44.1 COPD type: COPD with acute exacerbation Tobacco dependence F17.200 Pulmonary nodule R91.1 Hypercapnic respiratory failure J96.12 Chronicity: chronic Time Spent (min) 20
[2022-10-14 15:41] VITALS: PULSE 93; O2SAT 93; BMI 24.4
== END 2022-10-14 16:08 | disposition home or self-care (01) ==
PROVIDERS: PCP Internal Medicine; Visit Provider Hospitalist
DX: J44.1 Chronic obstructive pulmonary disease with (acute) exacerbation (principal); F17.200 Nicotine dependence, unspecified, uncomplicated; R91.1 Solitary pulmonary nodule; J96.12 Chronic respiratory failure with hypercapnia
CPT/HCPCS: 99214

== ENCOUNTER → 2022-10-14 15:32 | Outpatient (BNVA) | payer BC, SELFPAY | PROVIDERS: PCP Internal Medicine; Visit Provider Hospitalist ==

== ENCOUNTER 2023-05-26 15:38 | Outpatient (AMB) | payer BC, SELFPAY ==
[2023-05-26 15:44] VITALS: PULSE 92; O2SAT 95; BMI 24.4
--- NOTE | 2023-05-26 15:44 | A.OFFVIS_ITS ---
Intake Vital Signs 05/26/23 15:44 Height 5 ft 11 in Weight 175 lb BMI 24.4 Pulse 92 Pulse Source Pulse Oximeter Pulse Oximetry (%) 95 Oxygen Delivery Method Room Air Intake Visit Reasons: copd Graduate Teaching Associate Required: No Allergies varenicline [From Chantix] Adverse Reaction (Mild, Verified 05/26/23 15:46) Nightmare HPI HPI Comments History of Present Illness Details The patient is a 52 year-old gentleman tobacco dependency who apparently about 2-3 years ago developed worsening respiratory symptoms and was evaluated at [facility]. There he was diagnosed with an exacerbation. He was set up with Pulmonary and he was being monitored there. He did have pulmonary function studies and will try to get my hands on. The meantime the patient continues smoking. He did not follow up with the ensemble member. He continue working as an master electrician. 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 Denies any significant exposure to asbestos studies were off. The patient was laid off during the significant part of the pandemic. While he was at home late off he was smoking more he was depressed he was not doing much activity. Now he is back to working he feels short of breath. Moderate severity with any activity. He has also had productive cough. We were able to look at his previous imaging studies. He did have a CT scan of the abdomen at [facility] due to abdominal discomfort and some other GI issues that he has. In the meantime the lung windows did demonstrate significant bronchitis in addition to some areas of bronchiectasis. In the left lower lobe there was nodular density. At this point based on his high risk of malignancy in smoking the patient needs to have this followed up with the proper CT scan of the chest. The patient also needs to have a on the pulmonary function study to reassess his pulmonary capacity. He has significant bronchitis and therefore that will be treated as well. The patient understands that with his early on to COPD and significant bronchitis and respiratory symptoms he needs to quit smoking. He is willing to try Wellbutrin in addition to the nicotine patch. Will continue monitoring closely P will have come back after his CT scan and PFTs. 06/13/2020 the patient is here for maya dawkins follow-up visit. Overall the patient is doing a little better. He is using his inhaler as prescribed. He also started the azithromycin 3 times a week. His cough is overall better as well. He continues to have shortness of breath with activity. He also continues to smoke. He is trying to cut down. He is tolerating the Wellbutrin which is also helping with his cravings. We did review his pulmonary function studies demonstrating severe COPD. He has severe air trapping which is causing significant dyspnea on exertion. We talked about different techniques to help with that. He is going to looking to getting a Harmonic up. The patient has a moderate diffusion impairment. He also he did have a CT scan of the chest that was personally reviewed by me demonstrating small pulmonary nodules along with moderate degree of emphysema primarily in the upper lung zones. For this point the patient should have a repeat CT scan in a year's time to assure stability. He is only 49 years old with severe COPD. There is a positive family history of COPD. I did offer him to do the alpha-1 testing. But, he wanted to hold off to the next visit to get that done. 12/29/2020 the patient is here for pulmo nary follow-up visit. He continues on the Breztri with good effect. Also has his rescue inhaler that he uses daily. Recently, he was working in a very [place] work site. He noticed that his breathing was much worse. He has been having to use his rescue inhaler more often on a daily basis. Unfortunately continues to smoke cigarettes. We talked about different options as far as tobacco cessation. The patient does have severe COPD already at a young age and I am concerned that if he keeps his he will have very limited respiratory capacity. 07/11/2021 the patient is here for a pulmonary follow-up visit. Since we last spoke he was hospitalized with a viral syndrome in a COPD exacerbation. He had acute on chronic hypercarbic and hypoxic respiratory failure. Do significantly acidotic. However, he had a hard time tolerating BiPAP. the patient understands that the BiPAP is to help him released to CO2. Even with that though he has a hard time with the idea of using something at home. Will continue having this discussion. The patient also was discharged on oxygen. He feels that he is doing better. We did go for brief this 6 minutes walk test in the office. The patient did desaturated again to 88%. The patient needs to continue to use the oxygen with activity. 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 I did recommend that he stays with a desk job for another month. Unfortunately, he went back to smoking. He is not smoking as much as he did before but he is having hard time quitting completely. He is currently on a nicotine patch. Will continue to monitor his progress with smoking cessation. He continues uses respiratory therapy. In addition, we did review his last CT scan of the chest that was done back in May 2020 where he was found to have the emphysema and also multiple pulmonary nodules subcentimeter in nature. He needs to have a repeat CT scan. however, will wait to schedule during his follow-up to make sure that there is resolution of the acute process that he is just recovering from. The patient also would like to hold off on any noninvasive ventilator or BiPAP at this time. 10/15/2021 the patient is here for a pulmonary follow-up visit. He is starting to feel better. He is back to his baseline. He is back to work. He is using the oxygen at nighttime. He rarely uses it during the daytime. When he works typically is sitting down he does not get significantly winded. We did talk about smoking cessation. The patient has been struggling. He does want to q uit. He had a reaction to an unclear medications therefore he took off his nicotine patch. But he will rechallenging self to make sure that it was not the patch that he was allergic to. I also did recommend that he starts other alternative still back on cessation such as a knows this. I did give him information to call in order to make arrangements to undergo hypnosis. At this time the patient understands that his with his severe lung disease It appears that be rapidly progressing. Also, with the exacerbations any not be able to get back to his baseline. I am concerned that if he continues to progress in this fashion his respiratory capacity will be very limited and at that point a candidate for lung transplantation if he is able to completely quit smoking. He had tried noninvasive therapy while in the hospital. During the next visit will reassess his CO2. He is also going to undergo pulmonary function studies. I did recommend that he quit smoking prior to undergoing the pulmonary function study to see improvement. 04/23/2022 the patient is here for a pulmonary follow-up visit. He is here with significant other. Overall the patient has been feeling better. He to use his respiratory therapy with good effect. He also has the oxygen that he uses with activity. He has been trying to cut down on the smoking. He is going to get hypnotized in the coming days. In the meantime he knows to be very careful with the smoking and the oxygen as this can result in significant injury. Continues with respiratory therapy with good effect. We did review his pulmonar y function studies there appears to be a trend decrease from his FEV1. Now he has very severe COPD. He understands that he does not have any more lung to lose. We also talked about his elevated CO2. Will go ahead and which is request a venous gas. If his CO2 continues to be elevated then a noninvasive ventilator will be helpful in improving his gas exchange improving his prognosis and also his quality of life. He continues on the Wellbutrin which will continue for now. We also talked about the importance of pulmonary rehabilitation and disc likes also using Harmonic a to help with significant air trapping. Due to his severity of disease once the patient quit smoking we can consider lung volume reduction interventions to help with the air trapping and also in the future can consider lung transplant if his condition continues to worsen further. However, hopeful that if he quit smoking we see some stability of disease that continue to do well in his recovery. As it is already wheezing some improvement in his gas exchange which is reassuring. Although, the gas exchange can also be affected by his exogenous carbon monoxide exposure from smoking. 10/14/2022 the patient is here for pulmon min follow-up visit. Overall he is feeling a little bit better. He did have a blood repeat blood gas. It appears that his pCO2 so also slightly improved at 56 mmHg. His pH now is within normal limits. The patient still qualifies for noninvasive ventilator although patient electing to use the noninvasive ventilator at this time. Will continue to monitor his respiratory symptoms and will look into a noninvasive ventilator in the future. He continues to use his respiratory therapy. Although, continues to have significant wheezing and chest tightness. Will provide him a nebulizer. He can use it twice a day. He has been trying to quit smoking. He did try hypnosis it was initially helpful but then he skips or missed a session and then it became not helpful. The patient did not tolerate Chantix although this may be something may have to revisit. We did review his PFTs demonstrating a very severe obstruction which appears to be worsening when compared to 2020. patient also has very significant air trapping and we did talk about potential lung volume reduction interventions. He will talk to his regarding these procedures. Still, he needs to quit smoking. I think this be the most important intervention that he can take. We did perform a alpha-1 antitrypsin DNA swab today. Hopefully will get that in the coming weeks. 05/26/2023 the patient is here for a pulm onary follow-up visit. Overall the patient has been doing fairly well. Unfortunately continues to smoke cigarettes. Sometimes more than others. He still struggling with that. He will try again the patch to see if that provides him some relief. In the meantime the patient has been using his respiratory therapy. Start having wheezing regularly. The patient is agreeable to trying a small dose of theophylline to see if we can provide him additional bronchodilation while he works on quitting smoking altogether. The patient is also using noninvasive ventilator at night. He feels like he has been affecting beneficial. He is getting used to it and using at nighttime very well. During the last visit we had done alpha-1 testing. But, I do not see the results. See if they are willi ilable with the company. Patient also had a CT scan of the chest done back in the spring which we personally reviewed. The patient has pulmonary nodules but did have a new pulmonary nodule subcentimeter in size. We will need to get a repeat CT scan at this time in view of the new nodule. If the patient does not have any evidence of any worsening disease then he will be a good candidate to start the lung cancer screening program to continue getting low- dose CT scans in her yearly basis. [facility] Medical History (Updated 04/23/22 @ 14:27 by Elver Pablo MD) Acute on chronic respiratory failure with hypoxia and hypercapnia Hypercapnic respiratory failure Acute and chronic respiratory failure Coronavirus infection Acute respiratory failure with hypoxia and hypercapnia Acute respiratory failure with hypoxia COPD exacerbation Tobacco abuse Hypertension History of diverticulitis COPD (chronic obstructive pulmonary disease) Tobacco dependence COPD (chronic obstructive pulmonary disease) Pulmonary nodule Surgical History History of hernia repair History of partial colectomy Social History Household Members: Spouse Housing: House Alcohol intake: current Alcohol intake frequency: 0-2 drinks per day Alcohol type: beer Patient Tobacco Use Status: Current everyday Tobacco user Tobacco use type: Cigarette Cigarette Packs Per Day: 1 Cigarettes Per Day: 5 Years Smoked: 30 years Second Hand Smoke Exposure: No Substance Use Type: Marijuana service: No Current occupational status: employed Review of Systems Const Denies night sweats ENT Denies change in voice, Denies lip swelling, Denies mouth pain, Reports nasal congestion, Reports nasal discharge and Denies tongue swelling Card Denies chest pain and Reports dyspnea on exertion Resp Reports cough, Reports dyspnea on exertion and Reports wheezing GI Denies abdominal pain Musc Denies no additional complaints Neuro Denies Neuro-related abnormal movements Psych Denies no additional complaints Arpit/Lymph Denies easy bleeding and Denies lymphadenopathy Aller/Immun Denies lip swelling, Denies tongue swelling and Reports wheezing Physical Exam Vital Signs: Last Vital Signs Pulse 92 05/26/23 15:44 Pulse Ox 95 05/26/23 15:44 Oxygen Delivery Method Room Air 05/26/23 15:44 BMI result Body Mass Index 24.4 Const General: alert Neck Neck: Yes normal visual inspection, Yes full ROM and Yes no lymphadenopathy Chest Chest palpation & inspection: normal inspection of the chest Resp Effort & Inspection: prolonged expiratory phase Auscultation: wheezes and diminished lung sounds Cardio Rate: regular rate Rhythm: regular rhythm Heart sounds: S1 normal heart sound present and S2 normal heart sound present GI Palpation (GI): Soft to palpation and nontender Auscultation: normal bowel sounds Skin General skin exam: rashes and/or lesions noted Results Reviewed Results Reviewed: [place] [address] CT Scan Report Signed Patient: Adonis Vincent MR#: [id number] : 1970 Acct:[id number] Age/Sex: 50 / M ADM Date: 07/27/21 Loc: HO.CT Attending Dr: Elver Pablo MD Ordering Physician: Elver Pablo MD Date of Service: 07/27/21 Procedure(s): CT chest wo con Accession Number(s): [id number] cc: Elver Pablo MD~ EXAMINATION: CT CHEST WITHOUT CONTRAST CLINICAL INFORMATION: Solitary pulmonary nodule. COMPARISON: CT chest without contrast 05/17/2020. TECHNIQUE: Multidetector volumetric CT imaging of the chest was done. Axial MIP volume rendering provided. Sagittal and coronal reformatted images were obtained. This CT examination was performed using dose optimization techniques as appropriate, variously including the following: *Automated exposure control *Adjustment of mA and/or kV according to patient size (this includes techniques or standardized protocols for targeted exams where dose is matched to indication/reason for exam; i.e. extremities or head) *Use of iterative reconstruction technique DLP: 173 mGy-cm FINDINGS: CONSULTANTS INTERN: Well-expanded lungs. LUNGS: There is centrilobular emphysema without acute pneumonic process. There is a 4 mm nodule left upper lobe peripherally based, axial image 180/7; 2 mm nodule right lower lobe, axial image 261/7; subpleural linear densities right upper lobe, axial image 283/7; 3 mm nodule right lower lobe, axial image 303/7, new; 5 mm nodule right lower lobe superior segment, axial image 350/7, stable; 4 mm nodule right upper lobe laterally, axial image 316/7, stable. No other nodules seen. There is lingular atelectasis. MEDIASTINUM: The thyroid lobes are symmetric and normal. The central trachea and the bronchi are widely patent. The heart size and the great vessels are normal caliber. No abnormal-size mediastinal or hilar lymph nodes seen. There is no pericardial effusion. PLEURA: There is no pleural effusion. No pleural mass or thickening. AXILLA: No lymphadenopathy. UPPER ABDOMEN: Visualized liver, spleen, pancreas and bilateral adrenal glands are unremarkable. OSSEOUS STRUCTURES: No lytic or sclerotic process seen. Minimal ventral spondylosis seen. CT/CT chest wo con IMPRESSION: Diffuse centrilobular emphysema with stable pulmonary nodules. There is a new nodule in the right lower lobe measuring 3 mm. No abnormal mediastinal or axillary adenopathy seen. Recommend continued follow up in 18-24 months. Fleischner guidelines were followed. Dictated By: Venancio Lock MD Signed By: <Electronically signed by Venancio Lock MD in OV> 08/01/21 1266 DD/ 1325 TD/TT: Campus Security Director: [facility] Assessment & Plan Assessment & Plan (1) COPD (chronic obstructive pulmonary disease): Code(s): J44.9 - Chronic obstructive pulmonary disease, unspecified Qualifiers: COPD type: COPD with acute exacerbation Qualified Code(s): J44.1 - Chronic obstructive pulmonary disease with (acute) exacerbation Plan: Very severe based on his recent PFTs (2) Tobacco dependence: Code(s): F17.200 - Nicotine dependence, unspecified, uncomplicated (3) Pulmonary nodule: Code(s): R91.1 - Solitary pulmonary nodule (4) Hypercapnic respiratory failure: Code(s): J96.92 - Respiratory failure, unspecified with hypercapnia Qualifiers: Chronicity: chronic Qualified Code(s): J96.12 - Chronic respiratory failure with hypercapnia Plan Continue oxygen 2 L with activity continue NIV at night start low dose Theophylline, will need to follow levels repeat CT chest at this time, if stable, then will refer to the LDCT program for 2024 Continue respiratory therapy; Breztri, PAOLO Continue azithromycin 3 times a week continue Wellbutrin 150mg BID. We may have to revisit Chantix at somepoint nebulizer provided to use BID with Duoneb Pulmonary exercise. Needs to get a Harmonic out to start working with air trapping consider lung volume reduction interventions, he will discuss with his spouse completed alpha 1 testing, need to find results Follow-up in 4-6 months Orders: Orders CT chest wo IV con 05/26/23 R91.1 - Solitary pulmonary nodule Medications: New theophylline ER 200 mg PO Q12H 30 days 60 tabs 5RF Refilled Breztri Aerosphere 160-9-4.8 mcg/actuation (scokdszioe-tpvyjska-eetwkseiay) 2 inhalations PO BID 10.7 grams 11RF NS Quality Reporting (2019) Adult ([facility] 138/04/24/68) Smoking risk assessment performed?: Yes Patient Tobacco Use Status: Current everyday Tobacco user Coding Level of Care Code Est Pt Level 4 (06337) Diagnoses Chronic obstructive pulmonary disease with acute exacerbation J44.1 COPD type: COPD with acute exacerbation Tobacco dependence F17.200 Pulmonary nodule R91.1 Chronic respiratory failure with hypercapnia J96.12 Chronicity: chronic Time Spent (min) 18
== END 2023-05-26 16:08 | disposition home or self-care (01) ==
PROVIDERS: PCP Internal Medicine; Visit Provider Hospitalist
DX: J44.1 Chronic obstructive pulmonary disease with (acute) exacerbation (principal); F17.200 Nicotine dependence, unspecified, uncomplicated; R91.1 Solitary pulmonary nodule; J96.12 Chronic respiratory failure with hypercapnia
CPT/HCPCS: 99214

== ENCOUNTER → 2023-05-26 15:38 | Outpatient (BNVA) | payer BC, SELFPAY | PROVIDERS: PCP Internal Medicine; Visit Provider Hospitalist ==

== ENCOUNTER 2023-07-11 14:03 | Outpatient (REF) | payer BC, SELFPAY ==
--- NOTE | ~2023-07-11 | CT_ITS ---
EXAMINATION: CT CHEST WITHOUT CONTRAST CLINICAL INFORMATION: Pulmonary nodule. Emphysema. COMPARISON: 07/27/2021, 05/17/2020, and plain radiographs. TECHNIQUE: Multidetector volumetric CT imaging of the chest was done. Axial MIP volume rendering provided. Sagittal and coronal reformatted images were obtained. This CT examination was performed using dose optimization techniques as appropriate, variously including the following: *Automated exposure control *Adjustment of mA and/or kV according to patient size (this includes techniques or standardized protocols for targeted exams where dose is matched to indication/reason for exam; i.e. extremities or head) *Use of iterative reconstruction technique DLP: 243 mGy-cm FINDINGS: TELEGRAPH MECHANIC: Large lung volumes consistent with known emphysema. LUNGS: A dominant, solid, angular 9 x 3 mm (average diameter 6 mm) right upper lobe pulmonary nodule (series 7 image 308) unchanged through 2020. A solid angular 7 x 5 mm (average diameter 6 mm) right apical pulmonary nodule (series 7 image 206) stable compared with 2022. Interval near-complete resolution of a previously newly identified right upper lobe pulmonary nodule on 07/27/2021, (series 7 image 302). A subpleural linear opacity in the peripheral right upper lobe (series 7 image 305) decreases in size consistent with focal scarring. An 11 mm atypical, septated, slightly thick-walled left lower lobe pulmonary cyst (coronal series 5 image 67, axial series 7 image 449) has decreased in complexity. A small solid less than 4 mm left upper lobe pulmonary nodule (series 7 image 232) stable through 202. A punctate right upper lobe pulmonary nodule stable through 202 (series 7 image 273). An irregular solid 5 mm right upper lobe pulmonary nodule (series 7 image 3:30) unchanged through 202. An angular solid 4 mm superior segment right lower lobe pulmonary nodule (series 7 image 364) unchanged through 202. No new pulmonary nodules. Severe emphysema. Chronic mild bronchial wall thickening, likely smoking-related. Clinical correlation advised. Secretions in the trachea. Stable scarring or atelectasis in the medial middle lobe and lingula. Incidental accessory left horizontal fissure, a variant. Strongly advise entry of the patient into a program of yearly low-dose lung CT screening. MEDIASTINUM: No mediastinal mass or lymphadenopathy. CORONARY ARTERY CALCIFICATION: None visualized on this study. PLEURA: There is no pleural effusion. No pleural mass or thickening. AXILLA: No lymphadenopathy. UPPER ABDOMEN: Mild atherosclerotic peripheral vascular disease. Chronic perinephric fat stranding, a nonspecific finding. OSSEOUS STRUCTURES: Minor degenerative spine disease. CT/CT chest wo IV con IMPRESSION: 1. Pulmonary nodules and atypical pulmonary cyst are stable or decreased in size compared with 2021. No further follow-up required for these lesions. 2. Severe emphysema. Strongly advise entry of patient into a program of yearly low-dose lung CT screening. This critical result was discussed with Dr. Pablo at 12:38 PM on 08/15/2019 and it was ascertained that the content and urgency of the report was understood at the time of direct communication. 3. Chronic mild airways disease. Fleischner guidelines were followed.
== END 2023-07-11 14:04 | disposition home or self-care (01) ==
LOC: HO.CT 14:03
PROVIDERS: PCP Internal Medicine; Visit Provider Hospitalist
DX: R91.1 Solitary pulmonary nodule (principal)
CPT/HCPCS: 71250

== ENCOUNTER 2023-09-29 15:37 | Outpatient (AMB) | payer BC, SELFPAY ==
[2023-09-29 15:47] VITALS: PULSE 92; O2SAT 94; BMI 25.8
--- NOTE | 2023-09-29 15:47 | MHC.OFFVIS ---
Vital Signs 09/29/23 15:47 Height 5 ft 11 in Weight 185 lb BMI 25.8 Pulse 92 Pulse Source Pulse Oximeter Pulse Oximetry (%) 94 Oxygen Delivery Method Room Air Intake Visit Reasons: COPD/CT Follow Up Surgical Processor Required: No Allergies varenicline [From Chantix] Adverse Reaction (Mild, Verified 09/29/23 15:48) Nightmare HPI Comments Details: The patient is a 53 year-old gentleman tobacco dependency who apparently about 2-3 years ago developed worsening respiratory symptoms and was evaluated at [facility]. There he was diagnosed with an exacerbation. He was set up with Pulmonary and he was being monitored there. He did have pulmonary function studies and will try to get my hands on. The meantime the patient continues smoking. He did not follow up with the savings counselor. 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 Denies any significant exposure to asbestos studies were off. The patient was laid off during the significant part of the pandemic. While he was at home late off he was smoking more he was depressed he was not doing much activity. Now he is back to working he feels short of breath. Moderate severity with any activity. He has also had productive cough. We were able to look at his previous imaging studies. He did have a CT scan of the abdomen at [facility] due to abdominal discomfort and some other GI issues that he has. In the meantime the lung windows did demonstrate significant bronchitis in addition to some areas of bronchiectasis. In the left lower lobe there was nodular density. At this point based on his high risk of malignancy in smoking the patient needs to have this followed up with the proper CT scan of the chest. The patient also needs to have a on the pulmonary function study to reassess his pulmonary capacity. He has significant bronchitis and therefore that will be treated as well. The patient understands that with his early on to COPD and significant bronchitis and respiratory symptoms he needs to quit smoking. He is willing to try Wellbutrin in addition to the nicotine patch. Will continue monitoring closely P will have come back after his CT scan and PFTs. 06/13/2020 the patient is here for pulmonary follow-up visit. Overall the patient is doing a little better. He is using his inhaler as prescribed. He also started the azithromycin 3 times a week. His cough is overall better as well. He continues to have shortness of breath with activity. He also continues to smoke. He is trying to cut down. He is tolerating the Wellbutrin which is also helping with his cravings. We did review his pulmonary function studies demonstrating severe COPD. He has severe air trapping which is causing significant dyspnea on exertion. We talked about different techniques to help with that. He is going to looking to getting a Harmonic up. The patient has a moderate diffusion impairment. He also he did have a CT scan of the chest that was personally reviewed by me demonstrating small pulmonary nodules along with moderate degree of emphysema primarily in the upper lung zones. For this point the patient should have a repeat CT scan in a year's time to assure stability. He is only 49 years old with severe COPD. There is a positive family history of COPD. I did offer him to do the alpha-1 testing. But, he wanted to hold off to the next visit to get that done. 12/29/2020 the patient is here for pulmonary follow-up visit. He continues on the Breztri with good effect. Also has his rescue inhaler that he uses daily. Recently, he was working in a very [place] work site. He noticed that his breathing was much worse. He has been having to use his rescue inhaler more often on a daily basis. Unfortunately continues to smoke cigarettes. We talked about different options as far as tobacco cessation. The patient does have severe COPD already at a young age and I am concerned that if he keeps his he will have very limited respiratory capacity. 07/11/2021 the patient is here for a pulmonary follow-up visit. Since we last spoke he was hospitalized with a viral syndrome in a COPD exacerbation. He had acute on chronic hypercarbic and hypoxic respiratory failure. Do significantly acidotic. However, he had a hard time tolerating BiPAP. the patient understands that the BiPAP is to help him released to CO2. Even with that though he has a hard time with the idea of using something at home. Will continue having this discussion. The patient also was discharged on oxygen. He feels that he is doing better. We did go for brief this 6 minutes walk test in the office. The patient did desaturated again to 88%. The patient needs to continue to use the oxygen with activity. 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 I did recommend that he stays with a desk job for another month. Unfortunately, he went back to smoking. He is not smoking as much as he did before but he is having hard time quitting completely. He is currently on a nicotine patch. Will continue to monitor his progress with smoking cessation. He continues uses respiratory therapy. In addition, we did review his last CT scan of the chest that was done back in May 2020 where he was found to have the emphysema and also multiple pulmonary nodules subcentimeter in nature. He needs to have a repeat CT scan. however, will wait to schedule during his follow-up to make sure that there is resolution of the acute process that he is just recovering from. The patient also would like to hold off on any noninvasive ventilator or BiPAP at this time. 10/15/2021 the patient is here for a pulmonary follow-up visit. He is starting to feel better. He is back to his baseline. He is back to work. He is using the oxygen at nighttime. He rarely uses it during the daytime. When he works typically is sitting down he does not get significantly winded. We did talk about smoking cessation. The patient has been struggling. He does want to quit. He had a reaction to an unclear medications therefore he took off his nicotine patch. But he will rechallenging self to make sure that it was not the patch that he was allergic to. I also did recommend that he starts other alternative still back on cessation such as a knows this. I did give him information to call in order to make arrangements to undergo hypnosis. At this time the patient understands that his with his severe lung disease It appears that be rapidly progressing. Also, with the exacerbations any not be able to get back to his baseline. I am concerned that if he continues to progress in this fashion his respiratory capacity will be very limited and at that point a candidate for lung transplantation if he is able to completely quit smoking. He had tried noninvasive therapy while in the hospital. During the next visit will reassess his CO2. He is also going to undergo pulmonary function studies. I did recommend that he quit smoking prior to undergoing the pulmonary function study to see improvement. 04/23/2022 the patient is here for a pulmonary follow-up visit. He is here with significant other. Overall the patient has been feeling better. He to use his respiratory therapy with good effect. He also has the oxygen that he uses with activity. He has been trying to cut down on the smoking. He is going to get hypnotized in the coming days. In the meantime he knows to be very careful with the smoking and the oxygen as this can result in significant injury. Continues with respiratory therapy with good effect. We did review his pulmonary function studies there appears to be a trend decrease from his FEV1. Now he has very severe COPD. He understands that he does not have any more lung to lose. We also talked about his elevated CO2. Will go ahead and which is request a venous gas. If his CO2 continues to be elevated then a noninvasive ventilator will be helpful in improving his gas exchange improving his prognosis and also his quality of life. He continues on the Wellbutrin which will continue for now. We also talked about the importance of pulmonary rehabilitation and disc likes also using Harmonic a to help with significant air trapping. Due to his severity of disease once the patient quit smoking we can consider lung volume reduction interventions to help with the air trapping and also in the future can consider lung transplant if his condition continues to worsen further. However, hopeful that if he quit smoking we see some stability of disease that continue to do well in his recovery. As it is already wheezing some improvement in his gas exchange which is reassuring. Although, the gas exchange can also be affected by his exogenous carbon monoxide exposure from smoking. 10/14/2022 the patient is here for pulmonary follow-up visit. Overall he is feeling a little bit better. He did have a blood repeat blood gas. It appears that his pCO2 so also slightly improved at 56 mmHg. His pH now is within normal limits. The patient still qualifies for noninvasive ventilator although patient electing to use the noninvasive ventilator at this time. Will continue to monitor his respiratory symptoms and will look into a noninvasive ventilator in the future. He continues to use his respiratory therapy. Although, continues to have significant wheezing and chest tightness. Will provide him a nebulizer. He can use it twice a day. He has been trying to quit smoking. He did try hypnosis it was initially helpful but then he skips or missed a session and then it became not helpful. The patient did not tolerate Chantix although this may be something may have to revisit. We did review his PFTs demonstrating a very severe obstruction which appears to be worsening when compared to 2020. patient also has very significant air trapping and we did talk about potential lung volume reduction interventions. He will talk to his regarding these procedures. Still, he needs to quit smoking. I think this be the most important intervention that he can take. We did perform a alpha-1 antitrypsin DNA swab today. Hopefully will get that in the coming weeks. 05/26/2023 the patient is here for a pulmonary follow-up visit. Overall the patient has been doing fairly well. Unfortunately continues to smoke cigarettes. Sometimes more than others. He still struggling with that. He will try again the patch to see if that provides him some relief. In the meantime the patient has been using his respiratory therapy. Start having wheezing regularly. The patient is agreeable to trying a small dose of theophylline to see if we can provide him additional bronchodilation while he works on quitting smoking altogether. The patient is also using noninvasive ventilator at night. He feels like he has been affecting beneficial. He is getting used to it and using at nighttime very well. During the last visit we had done alpha-1 testing. But, I do not see the results. See if they are available with the company. Patient also had a CT scan of the chest done back in the spring which we personally reviewed. The patient has pulmonary nodules but did have a new pulmonary nodule subcentimeter in size. We will need to get a repeat CT scan at this time in view of the new nodule. If the patient does not have any evidence of any worsening disease then he will be a good candidate to start the lung cancer screening program to continue getting low-dose CT scans in her yearly basis. 09/29/2023 the patient is here for a pulmonary follow-up visit. He continues to have some difficulties. Recently had a cold resulting in a COPD flare-up. The patient did not take any prescription medications. Although he felt like it breathing became much worse after he recovered from that. He is still not back to his baseline. He is still working. Unfortunately he still smoking. Although he is really contemplating quitting because now he is going to need surgery on cyst on his face. But, they will not do surgery unless he quit smoking for 3 months. So now he is has a goal to accomplish. I will give him some nicotine patches that he can use along with the bupropion that he is already taking. Also is tolerating the theophylline. Seems to be effective for him. Will go ahead and check theophylline levels during the next time that he gets blood work and also check blood gas. He is using the noninvasive ventilator. He has been affecting beneficial. While he was sick he was using it night and day. Now he is using it mainly at nighttime. He is getting supplies regularly. As far as his respiratory medications he is fully maximize. The patient is not interested in going to [place] for any kind evaluation. Since he is still smoking he is not a candidate for lung transplant. [facility] Medical History (Updated 04/23/22 @ 14:27 by Elver Pablo MD) Acute on chronic respiratory failure with hypoxia and hypercapnia Hypercapnic respiratory failure Acute and chronic respiratory failure Coronavirus infection Acute respiratory failure with hypoxia and hypercapnia Acute respiratory failure with hypoxia COPD exacerbation Tobacco abuse Hypertension History of diverticulitis COPD (chronic obstructive pulmonary disease) Tobacco dependence COPD (chronic obstructive pulmonary disease) Pulmonary nodule Surgical History History of hernia repair History of partial colectomy Social History Household Members: Spouse Housing: House Alcohol intake: current Alcohol intake frequency: 0-2 drinks per day Alcohol type: beer Patient Tobacco Use Status: Current everyday Tobacco user Tobacco use type: Cigarette Cigarette Packs Per Day: 1 Cigarettes Per Day: 5 Years Smoked: 30 years Second Hand Smoke Exposure: No Substance Use Type: Marijuana service: No Current occupational status: employed Review of Systems Const Denies night sweats ENT Denies change in voice, Denies lip swelling, Denies mouth pain, Reports nasal congestion, Reports nasal discharge and Denies tongue swelling Card Denies chest pain and Reports dyspnea on exertion Resp Reports cough, Reports dyspnea on exertion and Reports wheezing GI Denies abdominal pain Musc Denies no additional complaints Neuro Denies Neuro-related abnormal movements Psych Denies no additional complaints Arpit/Lymph Denies easy bleeding and Denies lymphadenopathy Aller/Immun Denies lip swelling, Denies tongue swelling and Reports wheezing Physical Exam Vital Signs: Last Vital Signs Pulse 92 09/29/23 15:47 Pulse Ox 94 09/29/23 15:47 Oxygen Delivery Method Room Air 09/29/23 15:47 BMI result Body Mass Index 25.8 Const General: alert Neck Neck: Yes normal visual inspection, Yes full ROM and Yes no lymphadenopathy Chest Chest palpation & inspection: normal inspection of the chest Resp Effort & Inspection: prolonged expiratory phase Auscultation: wheezes and diminished lung sounds Cardio Rate: regular rate Rhythm: regular rhythm Heart sounds: S1 normal heart sound present and S2 normal heart sound present GI Palpation (GI): Soft to palpation and nontender Auscultation: normal bowel sounds Skin General skin exam: rashes and/or lesions noted Quality Reporting (2019) Adult ([facility] 138/04/24/68) Smoking risk assessment performed?: Yes Patient Tobacco Use Status: Current everyday Tobacco user Assessment & Plan Assessment & Plan (1) COPD (chronic obstructive pulmonary disease): Code(s): J44.9 - Chronic obstructive pulmonary disease, unspecified Category: Medical Qualifiers: COPD type: COPD with acute exacerbation Qualified Code(s): J44.1 - Chronic obstructive pulmonary disease with (acute) exacerbation Plan: Very severe based on his recent PFTs (2) Tobacco dependence: Code(s): F17.200 - Nicotine dependence, unspecified, uncomplicated Category: Medical (3) Pulmonary nodule: Code(s): R91.1 - Solitary pulmonary nodule Category: Medical (4) Hypercapnic respiratory failure: Code(s): J96.92 - Respiratory failure, unspecified with hypercapnia Category: Medical Qualifiers: Chronicity: chronic Qualified Code(s): J96.12 - Chronic respiratory failure with hypercapnia Plan Continue oxygen 2 L with activity continue NIV at night start low dose Theophylline, will need to follow levels CT chest at this time, stable, will refer to the LDCT program for 2024 Continue respiratory therapy; Maryztrprince, PAOLO Continue azithromycin 3 times a week continue Wellbutrin 150mg BID. We may have to revisit Chantix at somepoint nebulizer provided to use BID with Duone[facility] Pulmonary exercise. Needs to get a Harmonic out to start working with air trapping consider lung volume reduction interventions, he will discuss with his spouse completed alpha 1 testing, need to find results Follow-up in 4-6 months Orders: Orders Venous Blood Gas Today J44.1 - Chronic obstructive pulmonary disease with (acute) exacerbation Basic Metabolic Panel Today J44.1 - Chronic obstructive pulmonary disease with (acute) exacerbation Theophylline Today J44.1 - Chronic obstructive pulmonary disease with (acute) exacerbation Complete Blood Count Auto Diff Today J44.1 - Chronic obstructive pulmonary disease with (acute) exacerbation Alpha 1 Anti-trypsin Today J44.1 - Chronic obstructive pulmonary disease with (acute) exacerbation Medications: New prednisone PO daily; Take 2 tabs daily x 5 days, then 1 tablet daily x 5 days 10 days 15 tabs 0RF nicotine 1 patch transdermal DAILY 28 days 28 ea 5RF Coding Level of Care Code Est Pt Level 4 (75993) Complex EM visit Add On G2211 Diagnoses Chronic obstructive pulmonary disease with acute exacerbation J44.1 COPD type: COPD with acute exacerbation Tobacco dependence F17.200 Pulmonary nodule R91.1 Chronic respiratory failure with hypercapnia J96.12 Chronicity: chronic Time Spent (min) 16
== END 2023-09-29 16:14 | disposition home or self-care (01) ==
PROVIDERS: PCP Internal Medicine; Visit Provider Hospitalist
DX: J44.1 Chronic obstructive pulmonary disease with (acute) exacerbation (principal); F17.200 Nicotine dependence, unspecified, uncomplicated; R91.1 Solitary pulmonary nodule; J96.12 Chronic respiratory failure with hypercapnia
CPT/HCPCS: 99214

== ENCOUNTER → 2023-09-29 15:37 | Outpatient (BNVA) | payer BC, SELFPAY | PROVIDERS: PCP Internal Medicine; Visit Provider Hospitalist | DX: R91.1 Solitary pulmonary nodule (principal) ==

== ENCOUNTER 2024-06-01 15:30 | Outpatient (AMB) | payer BC, SELFPAY ==
[2024-06-01 15:32] VITALS: BP 140/82; PULSE 115; O2SAT 92; BMI 24.6
--- NOTE | 2024-06-01 15:32 | MHC.OFFVIS ---
Vital Signs 06/01/24 15:32 Height 5 ft 11 in Weight 176 lb 5.917 oz BMI 24.6 BP 140/82 H Blood Pressure Location Rt brachial Position Sitting Pulse 115 H Pulse Source Pulse Oximeter Pulse Oximetry (%) 92 Oxygen Delivery Method Room Air Intake Visit Reasons: copd Allergies varenicline [From Chantix] Adverse Reaction (Mild, Verified 06/01/24 15:34) Nightmare HPI Comments Details: The patient is a 53 year-old gentleman tobacco dependency who apparently about 2-3 years ago developed worsening respiratory symptoms and was evaluated at [facility]. There he was diagnosed with an exacerbation. He was set up with Pulmonary and he was being monitored there. He did have pulmonary function studies and will try to get my hands on. The meantime the patient continues smoking. He did not follow up with the metal moulder. 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 Denies any significant exposure to asbestos studies were off. The patient was laid off during the significant part of the pandemic. While he was at home late off he was smoking more he was depressed he was not doing much activity. Now he is back to working he feels short of breath. Moderate severity with any activity. He has also had productive cough. We were able to look at his previous imaging studies. He did have a CT scan of the abdomen at [facility] due to abdominal discomfort and some other GI issues that he has. In the meantime the lung windows did demonstrate significant bronchitis in addition to some areas of bronchiectasis. In the left lower lobe there was nodular density. At this point based on his high risk of malignancy in smoking the patient needs to have this followed up with the proper CT scan of the chest. The patient also needs to have a on the pulmonary function study to reassess his pulmonary capacity. He has significant bronchitis and therefore that will be treated as well. The patient understands that with his early on to COPD and significant bronchitis and respiratory symptoms he needs to quit smoking. He is willing to try Wellbutrin in addition to the nicotine patch. Will continue monitoring closely P will have come back after his CT scan and PFTs. 06/13/2020 the patient is here for pulmonary follow-up visit. Overall the patient is doing a little better. He is using his inhaler as prescribed. He also started the azithromycin 3 times a week. His cough is overall better as well. He continues to have shortness of breath with activity. He also continues to smoke. He is trying to cut down. He is tolerating the Wellbutrin which is also helping with his cravings. We did review his pulmonary function studies demonstrating severe COPD. He has severe air trapping which is causing significant dyspnea on exertion. We talked about different techniques to help with that. He is going to looking to getting a Harmonic up. The patient has a moderate diffusion impairment. He also he did have a CT scan of the chest that was personally reviewed by me demonstrating small pulmonary nodules along with moderate degree of emphysema primarily in the upper lung zones. For this point the patient should have a repeat CT scan in a year's time to assure stability. He is only 49 years old with severe COPD. There is a positive family history of COPD. I did offer him to do the alpha-1 testing. But, he wanted to hold off to the next visit to get that done. 12/29/2020 the patient is here for pulmonary follow-up visit. He continues on the Breztri with good effect. Also has his rescue inhaler that he uses daily. Recently, he was working in a very [place] work site. He noticed that his breathing was much worse. He has been having to use his rescue inhaler more often on a daily basis. Unfortunately continues to smoke cigarettes. We talked about different options as far as tobacco cessation. The patient does have severe COPD already at a young age and I am concerned that if he keeps his he will have very limited respiratory capacity. 07/11/2021 the patient is here for a pulmonary follow-up visit. Since we last spoke he was hospitalized with a viral syndrome in a COPD exacerbation. He had acute on chronic hypercarbic and hypoxic respiratory failure. Do significantly acidotic. However, he had a hard time tolerating BiPAP. the patient understands that the BiPAP is to help him released to CO2. Even with that though he has a hard time with the idea of using something at home. Will continue having this discussion. The patient also was discharged on oxygen. He feels that he is doing better. We did go for brief this 6 minutes walk test in the office. The patient did desaturated again to 88%. The patient needs to continue to use the oxygen with activity. 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 I did recommend that he stays with a desk job for another month. Unfortunately, he went back to smoking. He is not smoking as much as he did before but he is having hard time quitting completely. He is currently on a nicotine patch. Will continue to monitor his progress with smoking cessation. He continues uses respiratory therapy. In addition, we did review his last CT scan of the chest that was done back in May 2020 where he was found to have the emphysema and also multiple pulmonary nodules subcentimeter in nature. He needs to have a repeat CT scan. however, will wait to schedule during his follow-up to make sure that there is resolution of the acute process that he is just recovering from. The patient also would like to hold off on any noninvasive ventilator or BiPAP at this time. 10/15/2021 the patient is here for a pulmonary follow-up visit. He is starting to feel better. He is back to his baseline. He is back to work. He is using the oxygen at nighttime. He rarely uses it during the daytime. When he works typically is sitting down he does not get significantly winded. We did talk about smoking cessation. The patient has been struggling. He does want to quit. He had a reaction to an unclear medications therefore he took off his nicotine patch. But he will rechallenging self to make sure that it was not the patch that he was allergic to. I also did recommend that he starts other alternative still back on cessation such as a knows this. I did give him information to call in order to make arrangements to undergo hypnosis. At this time the patient understands that his with his severe lung disease It appears that be rapidly progressing. Also, with the exacerbations any not be able to get back to his baseline. I am concerned that if he continues to progress in this fashion his respiratory capacity will be very limited and at that point a candidate for lung transplantation if he is able to completely quit smoking. He had tried noninvasive therapy while in the hospital. During the next visit will reassess his CO2. He is also going to undergo pulmonary function studies. I did recommend that he quit smoking prior to undergoing the pulmonary function study to see improvement. 04/23/2022 the patient is here for a pulmonary follow-up visit. He is here with significant other. Overall the patient has been feeling better. He to use his respiratory therapy with good effect. He also has the oxygen that he uses with activity. He has been trying to cut down on the smoking. He is going to get hypnotized in the coming days. In the meantime he knows to be very careful with the smoking and the oxygen as this can result in significant injury. Continues with respiratory therapy with good effect. We did review his pulmonary function studies there appears to be a trend decrease from his FEV1. Now he has very severe COPD. He understands that he does not have any more lung to lose. We also talked about his elevated CO2. Will go ahead and which is request a venous gas. If his CO2 continues to be elevated then a noninvasive ventilator will be helpful in improving his gas exchange improving his prognosis and also his quality of life. He continues on the Wellbutrin which will continue for now. We also talked about the importance of pulmonary rehabilitation and disc likes also using Harmonic a to help with significant air trapping. Due to his severity of disease once the patient quit smoking we can consider lung volume reduction interventions to help with the air trapping and also in the future can consider lung transplant if his condition continues to worsen further. However, hopeful that if he quit smoking we see some stability of disease that continue to do well in his recovery. As it is already wheezing some improvement in his gas exchange which is reassuring. Although, the gas exchange can also be affected by his exogenous carbon monoxide exposure from smoking. 10/14/2022 the patient is here for pulmonary follow-up visit. Overall he is feeling a little bit better. He did have a blood repeat blood gas. It appears that his pCO2 so also slightly improved at 56 mmHg. His pH now is within normal limits. The patient still qualifies for noninvasive ventilator although patient electing to use the noninvasive ventilator at this time. Will continue to monitor his respiratory symptoms and will look into a noninvasive ventilator in the future. He continues to use his respiratory therapy. Although, continues to have significant wheezing and chest tightness. Will provide him a nebulizer. He can use it twice a day. He has been trying to quit smoking. He did try hypnosis it was initially helpful but then he skips or missed a session and then it became not helpful. The patient did not tolerate Chantix although this may be something may have to revisit. We did review his PFTs demonstrating a very severe obstruction which appears to be worsening when compared to 2020. patient also has very significant air trapping and we did talk about potential lung volume reduction interventions. He will talk to his regarding these procedures. Still, he needs to quit smoking. I think this be the most important intervention that he can take. We did perform a alpha-1 antitrypsin DNA swab today. Hopefully will get that in the coming weeks. 05/26/2023 the patient is here for a pulmonary follow-up visit. Overall the patient has been doing fairly well. Unfortunately continues to smoke cigarettes. Sometimes more than others. He still struggling with that. He will try again the patch to see if that provides him some relief. In the meantime the patient has been using his respiratory therapy. Start having wheezing regularly. The patient is agreeable to trying a small dose of theophylline to see if we can provide him additional bronchodilation while he works on quitting smoking altogether. The patient is also using noninvasive ventilator at night. He feels like he has been affecting beneficial. He is getting used to it and using at nighttime very well. During the last visit we had done alpha-1 testing. But, I do not see the results. See if they are available with the company. Patient also had a CT scan of the chest done back in the spring which we personally reviewed. The patient has pulmonary nodules but did have a new pulmonary nodule subcentimeter in size. We will need to get a repeat CT scan at this time in view of the new nodule. If the patient does not have any evidence of any worsening disease then he will be a good candidate to start the lung cancer screening program to continue getting low-dose CT scans in her yearly basis. 09/29/2023 the patient is here for a pulmonary follow-up visit. He continues to have some difficulties. Recently had a cold resulting in a COPD flare-up. The patient did not take any prescription medications. Although he felt like it breathing became much worse after he recovered from that. He is still not back to his baseline. He is still working. Unfortunately he still smoking. Although he is really contemplating quitting because now he is going to need surgery on cyst on his face. But, they will not do surgery unless he quit smoking for 3 months. So now he is has a goal to accomplish. I will give him some nicotine patches that he can use along with the bupropion that he is already taking. Also is tolerating the theophylline. Seems to be effective for him. Will go ahead and check theophylline levels during the next time that he gets blood work and also check blood gas. He is using the noninvasive ventilator. He has been affecting beneficial. While he was sick he was using it night and day. Now he is using it mainly at nighttime. He is getting supplies regularly. As far as his respiratory medications he is fully maximize. The patient is not interested in going to [place] for any kind evaluation. Since he is still smoking he is not a candidate for lung transplant. 06/01/2024 the patient is here for pulmonary follow-up visit. The patient overall has been struggling. He continues uses respiratory therapy. Although is only partially helpful. The patient unfortunately continues to smoke cigarettes. He did have good results with hypnosis in the past. Therefore, will go ahead refer him again. In the meantime he continues on the Wellbutrin. The patient also is willing to try the nicotine patch again. I will send that to the pharmacy. Seems to be tolerating the theophylline although the heart rate is a little elevated. Will have to recheck his theophylline levels. The blood work done soon. For also have him get an EKG. If the theophylline levels are too high or if he chose not tolerating the theophylline will have to discontinue. The elevated heart rate may also be due to a different condition altogether. The patient previously develop acute on chronic hypoxic respiratory failure and he did respond to BiPAP and noninvasive ventilation. But, the patient is no longer using any type of noninvasive ventilation. Will go ahead and repeat his blood gas and assess his need for. The the elevation of the CO2 persists or if his worsen definitely we have to be discussed going back on noninvasive ventilator. He is close to 4 weeks where we would have to find a masslike a nasal cradle that he would tolerate. [facility] Medical History (Updated 06/01/24 @ 21:35 by Elver Pablo MD) Acute on chronic respiratory failure with hypoxia and hypercapnia Hypercapnic respiratory failure Acute and chronic respiratory failure Coronavirus infection Acute respiratory failure with hypoxia and hypercapnia Acute respiratory failure with hypoxia COPD exacerbation Tobacco abuse Hypertension History of diverticulitis COPD (chronic obstructive pulmonary disease) Tobacco dependence COPD (chronic obstructive pulmonary disease) Pulmonary nodule Surgical History History of hernia repair History of partial colectomy Social History Household Members: Spouse Housing: House Alcohol intake: current Alcohol intake frequency: 0-2 drinks per day Alcohol type: beer Patient Tobacco Use Status: Current everyday Tobacco user Tobacco use type: Cigarette Cigarette Packs Per Day: 1 Cigarettes Per Day: 5 Years Smoked: 30 years Second Hand Smoke Exposure: No Substance Use Type: Marijuana service: No Current occupational status: employed Review of Systems Const Denies night sweats ENT Denies change in voice, Denies lip swelling, Denies mouth pain, Reports nasal congestion, Reports nasal discharge and Denies tongue swelling Card Denies chest pain and Reports dyspnea on exertion Resp Reports cough, Reports dyspnea on exertion and Reports wheezing GI Denies abdominal pain Musc Denies no additional complaints Neuro Denies Neuro-related abnormal movements Psych Denies no additional complaints Arpit/Lymph Denies easy bleeding and Denies lymphadenopathy Aller/Immun Denies lip swelling, Denies tongue swelling and Reports wheezing Physical Exam Vital Signs: Last Vital Signs Pulse 115 H 06/01/24 15:32 BP 140/82 H 06/01/24 15:32 Pulse Ox 92 06/01/24 15:32 Oxygen Delivery Method Room Air 06/01/24 15:32 BMI result Body Mass Index 24.6 Const General: alert Neck Neck: Yes normal visual inspection, Yes full ROM and Yes no lymphadenopathy Chest Chest palpation & inspection: normal inspection of the chest Resp Effort & Inspection: prolonged expiratory phase Auscultation: wheezes and diminished lung sounds Cardio Rate: regular rate Rhythm: regular rhythm Heart sounds: S1 normal heart sound present and S2 normal heart sound present GI Palpation (GI): Soft to palpation and nontender Auscultation: normal bowel sounds Skin General skin exam: rashes and/or lesions noted Assessment & Plan Assessment & Plan (1) COPD (chronic obstructive pulmonary disease): Code(s): J44.9 - Chronic obstructive pulmonary disease, unspecified Category: Medical Qualifiers: COPD type: chronic bronchitis Chronic bronchitis type: mixed simple and mucopurulent Qualified Code(s): J41.8 - Mixed simple and mucopurulent chronic bronchitis Plan: Very severe based on his recent PFTs (2) Tobacco dependence: Code(s): F17.200 - Nicotine dependence, unspecified, uncomplicated Category: Medical (3) Pulmonary nodule: Code(s): R91.1 - Solitary pulmonary nodule Category: Medical (4) Hypercapnic respiratory failure: Code(s): J96.92 - Respiratory failure, unspecified with hypercapnia Category: Medical Qualifiers: Chronicity: chronic Qualified Code(s): J96.12 - Chronic respiratory failure with hypercapnia Plan Continue oxygen 2 L with activity Low dose Theophylline, will need to follow levels LDCT program for 2024 Continue respiratory therapy; Breztri, PAOLO Continue azithromycin 3 times a week continue Wellbutrin 150mg BID. Add patch nebulizer provided to use BID with Duoneb Pulmonary exercise. Needs to get a Harmonic out to start working with air trapping consider lung volume reduction interventions, he will discuss with his spouse completed alpha 1 testing, need to find results Bloodwork EKG consider restarting NIV smoking cessation: will consider returning to hypnotherapy Follow-up in 4-6 months Orders: Orders ECG 12 lead EKG Today J44.9 - Chronic obstructive pulmonary disease, unspecified Medications: New nicotine (Nicoderm CQ) 1 patch transdermal DAILY 28 ea 11RF 28 days Coding Level of Care Code Est Pt Level 4 ([id number]) Complex EM visit Add On G2211 Diagnoses Mixed simple and mucopurulent chronic bronchitis J41.8 COPD type: chronic bronchitis Chronic bronchitis type: mixed simple and mucopurulent Tobacco dependence F17.200 Pulmonary nodule R91.1 Chronic respiratory failure with hypercapnia J96.12 Chronicity: chronic Time Spent (min) 17
== END 2024-06-01 15:57 | disposition home or self-care (01) ==
LOC: HO.HPS 15:31
PROVIDERS: PCP Internal Medicine; Visit Provider Hospitalist
DX: J41.8 Mixed simple and mucopurulent chronic bronchitis (principal); F17.200 Nicotine dependence, unspecified, uncomplicated; R91.1 Solitary pulmonary nodule; J96.12 Chronic respiratory failure with hypercapnia
CPT/HCPCS: 99214

== ENCOUNTER 2024-10-01 13:31 | Outpatient (REF) | payer BC, SELFPAY | END 2024-10-01 13:32 | disposition home or self-care (01) | LOC: HO.WFDLDS 13:31 | PROVIDERS: Visit Provider Hospitalist | DX: Z13.89 Encounter for screening for other disorder (principal) ==

== ENCOUNTER 2024-10-02 09:30 | Outpatient (REF) | payer BC, SELFPAY ==
[2024-10-02 09:42] LABS: MANUAL DIFF FLAG NO
[2024-10-02 09:53] LABS: Hematocrit 46.6 % (42.0-52.0); Hemoglobin 16.5 g/dl (14.0-18.0); Imm Gran Abs Auto 0.03 X10*3/uL (0.00-0.03); Imm Gran Pct Auto 0.3 % (0.0-0.4); Lymphocytes Absolute Auto 2.2 X10*3/uL (1.2-4.9); Mean Corpuscular HGB Conc 35.4 g/dl (31.0-36.0); Mean Corpuscular Hemoglobin 33.1 pg (27.0-33.0); Mean Corpuscular Volume 93.6 fL (80.0-98.0); NRBC Abs Auto 0.000 X10*3/uL (0.0-0.012); NRBC Pct Auto 0.0 /100WBC (0.0-0.2); Platelet Count 265 X10*3/uL (160-400); Red Blood Count 4.98 X10*6/uL (4.60-5.80); White Blood Count 8.9 X10*3/uL (4.8-10.8)
[2024-10-02 09:55] LABS: VBG HCO3 36 mmol/L (22-26); VBG O2 % Saturation 59.0 %; Venous Blood Gas Refer to POC result
[2024-10-02 10:29] LABS: Anion Gap 15 (12-20); Blood Urea Nitrogen 10 mg/dL (9-16); Calcium 9.9 mg/dL (8.4-10.2); Carbon Dioxide 32 mmol/L (22-29); Chloride 97 mmol/L (96-108); Estimated Glomerular Filt Rate > 60; Potassium 4.3 mmol/L (3.3-5.1); Sodium 140 mmol/L (135-145)
[2024-10-04 07:24] LABS: Theophylline 3.9
== END 2024-10-02 09:31 | disposition home or self-care (01) ==
LOC: HO.LAB 09:30
PROVIDERS: PCP Internal Medicine; Visit Provider Hospitalist
DX: J41.8 Mixed simple and mucopurulent chronic bronchitis (principal); J96.12 Chronic respiratory failure with hypercapnia
CPT/HCPCS: 36415; 80048; 80198; 82103; 82803; 85025

== ENCOUNTER 2024-11-29 15:38 | Outpatient (AMB) | payer BC, SELFPAY ==
--- NOTE | 2024-11-29 15:45 | A.OFFVIS_ITS ---
Vital Signs 11/29/24 15:46 Height 5 ft 11 in Weight 173 lb 1.006 oz BMI 24.1 BP 138/62 Blood Pressure Location Lt brachial Position Sitting Pulse 105 H Pulse Oximetry (%) 90 L Oxygen Delivery Method Room Air Intake Visit Reasons: COPD Light Bulb Replacer Required: No Accompanied by: Spouse Allergies varenicline (From Chantix) Adverse Reaction (Mild, Verified 11/29/24 15:49) Nightmare HPI Comments Details: The patient is a 54 year-old gentleman tobacco dependency who apparently about 2-3 years ago developed worsening respiratory symptoms and was evaluated at [facility]. There he was diagnosed with an exacerbation. He was set up with Pulmonary and he was being monitored there. He did have pulmonary function studies and will try to get my hands on. The meantime the patient continues smoking. He did not follow up with the mortgage coordinator. 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 Denies any significant exposure to asbestos studies were off. The patient was laid off during the significant part of the pandemic. While he was at home late off he was smoking more he was depressed he was not doing much activity. Now he is back to working he feels short of breath. Moderate severity with any activity. He has also had productive cough. We were able to look at his previous imaging studies. He did have a CT scan of the abdomen at [facility] due to abdominal discomfort and some other GI issues that he has. In the meantime the lung windows did demonstrate significant bronchitis in addition to some areas of bronchiectasis. In the left lower lobe there was nodular density. At this point based on his high risk of malignancy in smoking the patient needs to have this followed up with the proper CT scan of the chest. The patient also needs to have a on the pulmonary function study to reassess his pulmonary capacity. He has significant bronchitis and therefore that will be treated as well. The patient understands that with his early on to COPD and significant bronchitis and respiratory symptoms he needs to quit smoking. He is willing to try Wellbutrin in addition to the nicotine patch. Will continue monitoring closely P will have come back after his CT scan and PFTs. 06/13/2020 the patient is here for pulmonary follow-up visit. Overall the patient is doing a little better. He is using his inhaler as prescribed. He also started the azithromycin 3 times a week. His cough is overall better as well. He continues to have shortness of breath with activity. He also continues to smoke. He is trying to cut down. He is tolerating the Wellbutrin which is also helping with his cravings. We did review his pulmonary function studies demonstrating severe COPD. He has severe air trapping which is causing significant dyspnea on exertion. We talked about different techniques to help with that. He is going to looking to getting a Harmonic up. The patient has a moderate diffusion impairment. He also he did have a CT scan of the chest that was personally reviewed by me demonstrating small pulmonary nodules along with moderate degree of emphysema primarily in the upper lung zones. For this point the patient should have a repeat CT scan in a year's time to assure stability. He is only 49 years old with severe COPD. There is a positive family history of COPD. I did offer him to do the alpha-1 testing. But, he wanted to hold off to the next visit to get that done. 12/29/2020 the patient is here for pulmonary follow-up visit. He continues on the Breztri with good effect. Also has his rescue inhaler that he uses daily. Recently, he was working in a very [place] work site. He noticed that his breathing was much worse. He has been having to use his rescue inhaler more often on a daily basis. Unfortunately continues to smoke cigarettes. We talked about different options as far as tobacco cessation. The patient does have severe COPD already at a young age and I am concerned that if he keeps his he will have very limited respiratory capacity. 07/11/2021 the patient is here for a pulmonary follow-up visit. Since we last spoke he was hospitalized with a viral syndrome in a COPD exacerbation. He had acute on chronic hypercarbic and hypoxic respiratory failure. Do significantly acidotic. However, he had a hard time tolerating BiPAP. the patient understands that the BiPAP is to help him released to CO2. Even with that though he has a hard time with the idea of using something at home. Will continue having this discussion. The patient also was discharged on oxygen. He feels that he is doing better. We did go for brief this 6 minutes walk test in the office. The patient did desaturated again to 88%. The patient needs to continue to use the oxygen with activity. 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 I did recommend that he stays with a desk job for another month. Unfortunately, he went back to smoking. He is not smoking as much as he did before but he is having hard time quitting completely. He is currently on a nicotine patch. Will continue to monitor his progress with smoking cessation. He continues uses respiratory therapy. In addition, we did review his last CT scan of the chest that was done back in May 2020 where he was found to have the emphysema and also multiple pulmonary nodules subcentimeter in nature. He needs to have a repeat CT scan. however, will wait to schedule during his follow-up to make sure that there is resolution of the acute process that he is just recovering from. The patient also would like to hold off on any noninvasive ventilator or BiPAP at this time. 10/15/2021 the patient is here for a pulmonary follow-up visit. He is starting to feel better. He is back to his baseline. He is back to work. He is using the oxygen at nighttime. He rarely uses it during the daytime. When he works typically is sitting down he does not get significantly winded. We did talk about smoking cessation. The patient has been struggling. He does want to quit. He had a reaction to an unclear medications therefore he took off his nicotine patch. But he will rechallenging self to make sure that it was not the patch that he was allergic to. I also did recommend that he starts other alternative still back on cessation such as a knows this. I did give him information to call in order to make arrangements to undergo hypnosis. At this time the patient understands that his with his severe lung disease It appears that be rapidly progressing. Also, with the exacerbations any not be able to get back to his baseline. I am concerned that if he continues to progress in this fashion his respiratory capacity will be very limited and at that point a candidate for lung transplantation if he is able to completely quit smoking. He had tried noninvasive therapy while in the hospital. During the next visit will reassess his CO2. He is also going to undergo pulmonary function studies. I did recommend that he quit smoking prior to undergoing the pulmonary function study to see improvement. 04/23/2022 the patient is here for a pulmonary follow-up visit. He is here with significant other. Overall the patient has been feeling better. He to use his respiratory therapy with good effect. He also has the oxygen that he uses with activity. He has been trying to cut down on the smoking. He is going to get hypnotized in the coming days. In the meantime he knows to be very careful with the smoking and the oxygen as this can result in significant injury. Continues with respiratory therapy with good effect. We did review his pulmonary function studies there appears to be a trend decrease from his FEV1. Now he has very severe COPD. He understands that he does not have any more lung to lose. We also talked about his elevated CO2. Will go ahead and which is request a venous gas. If his CO2 continues to be elevated then a noninvasive ventilator will be helpful in improving his gas exchange improving his prognosis and also his quality of life. He continues on the Wellbutrin which will continue for now. We also talked about the importance of pulmonary rehabilitation and disc likes also using Harmonic a to help with significant air trapping. Due to his severity of disease once the patient quit smoking we can consider lung volume reduction interventions to help with the air trapping and also in the future can consider lung transplant if his condition continues to worsen further. However, hopeful that if he quit smoking we see some stability of disease that continue to do well in his recovery. As it is already wheezing some improvement in his gas exchange which is reassuring. Although, the gas exchange can also be affected by his exogenous carbon monoxide exposure from smoking. 10/14/2022 the patient is here for pulmonary follow-up visit. Overall he is feeling a little bit better. He did have a blood repeat blood gas. It appears that his pCO2 so also slightly improved at 56 mmHg. His pH now is within normal limits. The patient still qualifies for noninvasive ventilator although patient electing to use the noninvasive ventilator at this time. Will continue to monitor his respiratory symptoms and will look into a noninvasive ventilator in the future. He continues to use his respiratory therapy. Although, continues to have significant wheezing and chest tightness. Will provide him a nebulizer. He can use it twice a day. He has been trying to quit smoking. He did try hypnosis it was initially helpful but then he skips or missed a session and then it became not helpful. The patient did not tolerate Chantix although this may be something may have to revisit. We did review his PFTs demonstrating a very severe obstruction which appears to be worsening when compared to 2020. patient also has very significant air trapping and we did talk about potential lung volume reduction interventions. He will talk to his regarding these procedures. Still, he needs to quit smoking. I think this be the most important intervention that he can take. We did perform a alpha-1 antitrypsin DNA swab today. Hopefully will get that in the coming weeks. 05/26/2023 the patient is here for a pulmonary follow-up visit. Overall the patient has been doing fairly well. Unfortunately continues to smoke cigarettes. Sometimes more than others. He still struggling with that. He will try again the patch to see if that provides him some relief. In the meantime the patient has been using his respiratory therapy. Start having wheezing regularly. The patient is agreeable to trying a small dose of theophylline to see if we can provide him additional bronchodilation while he works on quitting smoking altogether. The patient is also using noninvasive ventilator at night. He feels like he has been affecting beneficial. He is getting used to it and using at nighttime very well. During the last visit we had done alpha-1 testing. But, I do not see the results. See if they are available with the company. Patient also had a CT scan of the chest done back in the spring which we personally reviewed. The patient has pulmonary nodules but did have a new pulmonary nodule subcentimeter in size. We will need to get a repeat CT scan at this time in view of the new nodule. If the patient does not have any evidence of any worsening disease then he will be a good candidate to start the lung cancer screening program to continue getting low- dose CT scans in her yearly basis. 09/29/2023 the patient is here for a pulmonary follow-up visit. He continues to have some difficulties. Recently had a cold resulting in a COPD flare-up. The patient did not take any prescription medications. Although he felt like it breathing became much worse after he recovered from that. He is still not back to his baseline. He is still working. Unfortunately he still smoking. Although he is really contemplating quitting because now he is going to need surgery on cyst on his face. But, they will not do surgery unless he quit smoking for 3 months. So now he is has a goal to accomplish. I will give him some nicotine patches that he can use along with the bupropion that he is already taking. Also is tolerating the theophylline. Seems to be effective for him. Will go ahead and check theophylline levels during the next time that he gets blood work and also check blood gas. He is using the noninvasive ventilator. He has been affecting beneficial. While he was sick he was using it night and day. Now he is using it mainly at nighttime. He is getting s upplies regularly. As far as his respiratory medications he is fully maximize. The patient is not interested in going to [facility] for any kind evaluation. Since he is still smoking he is not a candidate for lung transplant. 06/01/2024 the patient is here for pulmonary follow-up visit. The patient overall has been struggling. He continues uses respiratory therapy. Although is only partially helpful. The patient unfortunately continues to smoke cigarettes. He did have good results with hypnosis in the past. Therefore, will go ahead refer him again. In the meantime he continues on the Wellbutrin. The patient also is willing to try the nicotine patch again. I will send that to the pharmacy. Seems to be tolerating the theophylline although the heart rate is a little elevated. Will have to recheck his theophylline levels. The blood work done soon. For also have him get an EKG. If the theophylline levels are too high or if he chose not tolerating the theophylline will have to discontinue. The elevated heart rate may also be due to a different condition altogether. The patient previously develop acute on chronic hypoxic respiratory failure and he did respond to BiPAP and noninvasive ventilation. But, the patient is no longer using any type of noninvasive ventilation. Will go ahead and repeat his blood gas and assess his need for. The the elevation of the CO2 persists or if his worsen definitely we have to be discussed going back on noninvasive ventilator. He is close to 4 weeks where we would have to find a masslike a nasal cradle that he would tolerate. 11/29/2024 the patient is here for pulmonary follow-up visit. Overall the patient is doing about the same. He continues to work. Unfortunately continues to smoke cigarettes. He continues on the Wellbutrin although he is not taking the full dose. Will go ahead and increase it. Hopefully that will help decrease some of the smoking craving. Meantime does have dyspnea on exertion with minimal activity. Moderate severity. He does have the oxygen. He is wondering if he still needs to be on 3 L while sleeping. Will go ahead and have him decrease it down to 2 L and have [facility] for former an overnight oximetry to assess his oxygen needs. His last blood gas was done back in October of this year which demonstrated chronic hypercarbic respiratory failure with a pCO2 of 61. his measured bicarb was 32. 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 The patient did have evidence of eosinophilia as well. Therefore based on his elevated eosinophil count and significant COPD will go ahead and request Nucala to see about decreasing the exacerbations the mucus burden and improve the respiratory capacity. The patient also does qualify for the lung cancer screening program. The last CT scan that we had done was back in July 2023 demonstrating stable disease emphysema. Will go ahead and request lung cancer screening program to be started here [place]. The patient will return 6 months will have him get blood work prior to that visit. Hopefully we can start the Nucala soon. We can also consider other therapies. Also to note that the theophylline had to be changed because of the back order. The current dose is causing him to have some pruritus. Therefore, if he does well Nucroel will see about discontinuing the theophylline. [facility] Medical History (Updated 06/01/24 @ 21:35 by Elver Pablo MD) Acute on chronic respiratory failure with hypoxia and hypercapnia Hypercapnic respiratory failure Acute and chronic respiratory failure Coronavirus infection Acute respiratory failure with hypoxia and hypercapnia Acute respiratory failure with hypoxia COPD exacerbation Tobacco abuse Hypertension History of diverticulitis COPD (chronic obstructive pulmonary disease) Tobacco dependence COPD (chronic obstructive pulmonary disease) Pulmonary nodule Surgical History History of hernia repair History of partial colectomy Social History Household Members: Spouse Housing: House Alcohol intake: current Alcohol intake frequency: 0-2 drinks per day Alcohol type: beer Patient Tobacco Use Status: Current everyday Tobacco user Tobacco use type: Cigarette Cigarette Packs Per Day: 1 Cigarettes Per Day: 5 Years Smoked: 30 years Second Hand Smoke Exposure: No Substance Use Type: Marijuana service: No Current occupational status: employed Review of Systems Const Denies night sweats ENT Denies change in voice, Denies lip swelling, Denies mouth pain, Reports nasal congestion, Reports nasal discharge and Denies tongue swelling Card Denies chest pain and Reports dyspnea on exertion Resp Reports cough, Reports dyspnea on exertion and Reports wheezing GI Denies abdominal pain Musc Denies no additional complaints Neuro Denies Neuro-related abnormal movements Psych Denies no additional complaints Arpit/Lymph Denies easy bleeding and Denies lymphadenopathy Aller/Immun Denies lip swelling, Denies tongue swelling and Reports wheezing Physical Exam Vital Signs: Last Vital Signs Pulse 105 H 11/29/24 15:46 BP 138/62 11/29/24 15:46 Pulse Ox 90 L 11/29/24 15:46 Oxygen Delivery Method Room Air 11/29/24 15:46 BMI result Body Mass Index 24.1 Const General: alert Neck Neck: Yes normal visual inspection, Yes full ROM and Yes no lymphadenopathy Chest Chest palpation & inspection: normal inspection of the chest Resp Effort & Inspection: prolonged expiratory phase Auscultation: wheezes and diminished lung sounds Cardio Rate: regular rate Rhythm: regular rhythm Heart sounds: S1 normal heart sound present and S2 normal heart sound present GI Palpation (GI): Soft to palpation and nontender Auscultation: normal bowel sounds Skin General skin exam: rashes and/or lesions noted Assessment & Plan Assessment & Plan (1) COPD (chronic obstructive pulmonary disease): Code(s): J44.9 - Chronic obstructive pulmonary disease, unspecified Category: Medical Qualifiers: COPD type: chronic bronchitis Chronic bronchitis type: mixed simple and mucopurulent Qualified Code(s): J41.8 - Mixed simple and mucopurulent chronic bronchitis Plan: Very severe based on his recent PFTs (2) Tobacco dependence: Code(s): F17.200 - Nicotine dependence, unspecified, uncomplicated Category: Medical (3) Pulmonary nodule: Code(s): R91.1 - Solitary pulmonary nodule Category: Medical (4) Hypercapnic respiratory failure: Code(s): J96.92 - Respiratory failure, unspecified with hypercapnia Category: Medical Qualifiers: Chronicity: chronic Qualified Code(s): J96.12 - Chronic respiratory failure with hypercapnia (5) Acute on chronic respiratory failure with hypoxia and hypercapnia: Code(s): J96.21 - Acute and chronic respiratory failure with hypoxia; J96.22 - Acute and chronic respiratory failure with hypercapnia Category: Medical Plan Continue oxygen 2 L with activity and sleep Overnight oximetry while on 2L/min Low dose Theophylline, will need to follow levels LDCT program for 2024 Continue respiratory therapy; Yaw, PAOLO Continue azithromycin 3 times a week continue Wellbutrin 150mg BID. Add patch nebulizer provided to use QID start Nucala T1utopb Pulmonary exercise. Needs to get a Harmonic out to start working with air trapping consider lung volume reduction interventions, he will discuss with his spouse Bloodwork EKG next visit consider restarting NIV smoking cessation: will consider returning to hypnotherapy Follow-up in 4-6 months Orders: Orders Overnight Pulse Oximetry Today J96.21 - Acute and chronic respiratory failure with hypoxia, J96.22 - Acute and chronic respiratory failure with hypercapnia Referrals Lung Cancer Screening Referral J96.12 - Chronic respiratory failure with hypercapnia Coding Level of Care Code Est Pt Level 5 (75491) Complex EM visit Add On G2211 Diagnoses Mixed simple and mucopurulent chronic bronchitis J41.8 COPD type: chronic bronchitis Chronic bronchitis type: mixed simple and mucopurulent Tobacco dependence F17.200 Pulmonary nodule R91.1 Chronic respiratory failure with hypercapnia J96.12 Chronicity: chronic Acute on chronic respiratory failure with hypoxia and hypercapnia J96.21; J96.22 Time Spent (min) 50
[2024-11-29 15:46] VITALS: BP 138/62; PULSE 105; O2SAT 90; BMI 24.1
== END 2024-11-29 16:25 | disposition home or self-care (01) ==
LOC: HO.HPS 15:39
PROVIDERS: PCP Internal Medicine; Visit Provider Hospitalist
DX: J41.8 Mixed simple and mucopurulent chronic bronchitis (principal); F17.200 Nicotine dependence, unspecified, uncomplicated; R91.1 Solitary pulmonary nodule; J96.12 Chronic respiratory failure with hypercapnia; J96.21 Acute and chronic respiratory failure with hypoxia; J96.22 Acute and chronic respiratory failure with hypercapnia
CPT/HCPCS: 99215